=== PATIENT | female | born 1955 | race Caucasian/White ===

== ENCOUNTER 2016-05-30 15:26 | Inpatient (IN) | payer MEDICARE, MEDICAID ==
[2016-05-30] VITALS (19 sets, daily range): BP systolic 67–105; BP diastolic 32–59; PULSE 67–76; RESP 19–37; TEMP 98.5; O2SAT 89–100; Ht 137.2 cm; Wt 60.7 kg
[~2016-05-30] VITALS: Ht 137.2 cm; Wt 60.7 kg
[~2016-05-30 15:26] MED LIST: ACET-62 PO; ALBU18HF2 ORAL INH; BABY OIL TOP; CALC-1000 PO; CHOL100018 PO; CITA-50 PO; CLOT15CR8 TOP; DESENEX TP; DIVA250T27 PO; DOCU-175 PO; FLUO118.2 TOP; FLUT16SP12 EA NOSTRIL; FURO20TA6 PO; GLUC500C2 PO; GLUC500T PO; LEVO75TA10 PO; LORA-326 PO; MICO56OI2 TOP; MUPI22OI2 TOP; NYST15CR2 TOP; POLY15DR58 BOTH EYES; RISP0.2515 PO; SODI15DR7 BOTH EYES; TRAZ-173 PO; TRIA15CR2 TOP; VIT236LO TOP; ZINC57OI3 TOP; [UNRECOGNIZED DRUG - CODE] PO; [UNRECOGNIZED DRUG - CODE] PO; [UNRECOGNIZED DRUG - CODE] TOP
--- OUTSIDE RECORDS SUMMARY | 2016-05-30 15:31 | XMS REPORT | Continuity of Care Document ---
Author Author [facility] Organization [facility] Address Unknown Phone Unavailable Care Team Providers Care General Education Instructor Name Role Phone SKYLER MC DO Primary Care Physician [phone] Insurance Providers Payer Name Policy Number Subscriber Name Relationship Medicare [id number] Avis Adair Self [facility] [employer] Plan [id number] Avis Adair Self Advance Directives Directive Response Recorded Date/Time Ordered Resuscitation Status Full Code 04/29/14 12:52pm Resuscitation Documents on File No 04/29/14 1:24pm Chief Complaint and Reason for Visit Chief Complaint SEPSIS/PENUMONIA/HYPOXEMIA Reason for Visit Severe sepsis with acute organ dysfunction Left lower lobe pneumonia Severe sepsis with acute organ dysfunction Problems Medical Problems Problem Onset Date Status episode of choking Unknown Active Fall on same level from slipping, tripping or stumbling Unknown Active Knee contusions Unknown Active Minor head injury Unknown Active Nasal contusion Unknown Active Knee pain, bilateral Unknown Active Abrasion of knee Unknown Active Knee pain, bilateral Unknown Active Contusion of knee Unknown Active Abrasion of knee Unknown Active Contusion of knee Unknown Active Severe sepsis with acute organ dysfunction Unknown Active Left lower lobe pneumonia Unknown Active Severe sepsis with acute organ dysfunction Unknown Active Medications Medication Dose Route Sig Days/Qty Instructions Order Date Discontinued Date Status Loratadine 10 Mg PO DAILY 06/30/08 Active Furosemide 20 Mg PO DAILY 06/30/08 Active Levothyroxine Sodium 112 Mcg PO DAILY 06/30/08 10/31/11 Discontinued Multivitamins,Therapeutic 1 Tab PO DAILY 06/30/08 Active Miconazole Nitrate 141 Gm TP NEEDED 06/30/08 03/27/12 Discontinued Calcium Carbonate 1 Cap PO THREE TIMES A DAY 06/30/08 Active Ipratropium/Albuterol Sulfate 14.7 Gm IH NEEDED 06/30/08 Active Hydrocortisone 0.89 Gm TP TWICE A DAY 06/30/08 03/27/12 Discontinued Loperamide Hcl 2 Mg PO NEEDED 06/30/08 Active Citalopram Hydrobromide 20 Mg PO DAILY 10/31/11 Active Fluticasone Propionate 16 Gm NS DAILY 10/31/11 Active Glucosam Hcl/Chondro Dominguez A/C/Mn 1 Cap PO DAILY 10/31/11 Active Levothyroxine Sodium 75 Mcg PO DAILY 10/31/11 Active Acetaminophen THREE TIMES A DAY 01/25/14 Active Diphenhydramine HCl 1 Tab PO BEDTIME 01/25/14 Active Temazepam 15 Mg PO BEDTIME Take 1 capsule, by mouth, one time a day at BEDTIME. 01/25/14 Active Trazodone HCl 50 Mg PO BEDTIME 01/25/14 Active Glucosamine Sulfate 2Kcl 500 Mg 02/19/14 Active Dextran 70/Hypromellose 1-2 Drop BOTH EYES EVERY 4-6 HOURS PRN DRY EYES 04/29/14 Active Clobetasol Propionate/Emoll THREE TIMES A DAY PRN M 04/29/14 Active Sodium Chloride 1 Drop OP 04/29/14 Active Amox Tr/Potassium Clavulanate 875 Mg PO TWICE DAILY WITH MEALS 5 Days 05/12/14 Active Furosemide 20 Mg PO GIVE 0900 & 1700 5 Days 05/12/14 Active Social History Social History Problem Response Recorded Date/Time Hx Alcohol Use No 04/29/2014 10:08am Has the pt used tobacco in the last 12 months No 04/29/2014 1:25pm Tobacco Usage none 01/25/2014 3:55pm Query Response Start Date Stop Date Smoking Status Never smoker Hospital Discharge Instructions Instructions: Care Instructions: Reason for Hospitalization: pneumonia I was in the hospital because (patient own words): UNABLE TO ANSWER Follow Up Appointments: Follow up in office in 1 week. Condition at time of discharge: Good [address] 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 Pena or the covering surgeon. *In the event of an emergency, seek medical care at the nearest emergency room.* Condition at time of discharge: Good Plan of Care Discharge Date 05/12/14 8:05pm Disposition 06 HOME HEALTH SERVICE Instructions/Education Provided [facility] Congestive Heart Failure DI for Pneumonia -- Adult Prescriptions See Medications Section Functional Status Query Response Date Recorded Physical Hygiene Total Care May 12, 2014 4:17pm Disabilities None May 12, 2014 4:17pm Devices Used None May 12, 2014 4:17pm Dressing Total Care May 12, 2014 4:17pm Ambulation Assist May 12, 2014 4:17pm Diet Assist May 12, 2014 4:17pm Cognitive/Functional Comments downs syndrome and mental retardation May 12, 2014 4:17pm Mental Status Confused May 12, 2014 4:17pm Disabilities None May 12, 2014 4:17pm Devices Used None May 12, 2014 4:17pm Physical Hygiene Total Care May 12, 2014 4:17pm Dressing Total Care May 12, 2014 4:17pm Ambulation Assist May 12, 2014 4:17pm Diet Assist May 12, 2014 4:17pm Allergies, Adverse Reactions, Alerts Allergen Type Severity Reaction Status Last Updated No Known Allergies Active 02/19/14 Immunizations Name Given Type Hx Influenza Vaccination Y NOV 2013 Historical Hx Pneumococcal Vaccination Y JAN 2014 Historical Hx Influenza Vaccination Y NOV 2013 Historical Hx Tetanus Diptheria 12/28/03 Historical Vital Signs Acute Vital Signs Vital Response Date/Time Temperature (Fahrenheit) 96.9 deg F (96.8 - 99.1) Temperature (Calculated Celsius) 36.64264 degrees C (36.0 - 37.3) Pulse Rate (adult) 69 bpm (60 - 100) Respiratory Rate 20 breaths/min (10 - 20) O2 Sat by Pulse Oximetry 92 % (90 - 100) Oxygen Delivery Method Nasal Cannula Oxygen Flow Rate 3.00 L/min Height 4 ft 7 in Weight 141 lb Body Mass Index 32.0 kg/m^2 Results Test Source Date Result Interp. Ref. Range Comments Alanine Aminotransferase (ALT/SGPT) May 10, 2014 6:18am 45 U/L N 9-52 Albumin May 10, 2014 6:18am 2.4 G/DL L 3.5-5.0 Albumin/Globulin Ratio May 10, 2014 6:18am 0.8 RATIO L 1.1-2.2 Alkaline Phosphatase May 10, 2014 6:18am 55 U/L N 38-126 Anion Gap May 12, 2014 8:00am 8 MEQ/L N 5-15 Aspartate Amino Transf (AST/SGOT) May 10, 2014 6:18am 45 U/L H 14-36 BUN/Creatinine Ratio May 12, 2014 8:00am 16 RATIO N 6-26 Band Neutrophils # May 03, 2014 11:12am 0.4 T/MM3 - Band Neutrophils % May 03, 2014 11:12am 5.0 % N 0-6 Basophils # (Auto) May 12, 2014 8:00am 0.1 T/MM3 N 0-0.2 Basophils (%) (Auto) May 12, 2014 8:00am 1.8 % N 0-2 Blood Urea Nitrogen May 12, 2014 8:00am 22.0 MG/DL H 7-17 Calcium Level May 12, 2014 8:00am 8.3 MG/DL L 8.4-10.2 Calculated Osmolality May 12, 2014 8:00am 279 MOSM/KG N 261-280 Carbon Dioxide Level May 12, 2014 8:00am 35 MEQ/L H 22-30 Chemistry Specimen Hemolysis May 12, 2014 8:00am < 15 0-25 0-25: No Hemolysis.26-70: Slight Hemolysis - can falsely elevate K and Urine Protein. 71-285: Moderate Hemolysis - can falsely elevate K, Troponin I, CA 19-9, PTH, CSF GLucose, and Urine Protein, and can falsely decrease Phenytoin. 286-999: Gross Hemolysis - can falsely elevate K, Troponin I, CA 19-9, PTH, CSF Glucose, and Urine Protine, and can falsely decrease Phenytoin. Recommend specimen recollection. Chloride Level May 12, 2014 8:00am 101 MEQ/L N 98-107 Creatinine May 12, 2014 8:00am 1.4 MG/DL H 0.7-1.2 Eosinophils # (Auto) May 12, 2014 8:00am 0.3 T/MM3 N 0-0.5 Eosinophils # (Manual) May 04, 2014 6:06am 0.2 T/MM3 N 0-0.5 Eosinophils % (Manual) May 04, 2014 6:06am 4.0 % N 0-4 Eosinophils (%) (Auto) May 12, 2014 8:00am 4.6 % H 0-4 Globulin May 10, 2014 6:18am 3.0 G/DL N 2.4-3.6 Glomerular Filtration Rate Calc May 12, 2014 8:00am 38 - Glucose Level May 12, 2014 8:00am 80 MG/DL N 65-110 Hematocrit May 12, 2014 8:00am 33.5 % L 36-46 Hemoglobin May 12, 2014 8:00am 10.9 GM/DL L 12-16 Icterus Index May 12, 2014 8:00am < 2 0-7 Immature Granulocyte # (Auto) May 12, 2014 8:00am 0.02 T/MM3 N 0.00- 0.03 Immature Granulocyte % (Auto) May 12, 2014 8:00am 0.3 % N 0.0-0.5 Influenza Type A Antigen April 29, 2014 3:35pm Negative - Negative for Flu A protein antigen. Assay sensitivity is90%. Influenza Type B Antigen April 29, 2014 3:35pm Negative - Negative for Flu B protein antigen. Assay sensitivity is90%. Lymphocytes # (Auto) May 12, 2014 8:00am 0.9 T/MM3 L 1-4.8 Lymphocytes # (Manual) May 04, 2014 6:06am 0.6 T/MM3 L 1-4.8 Lymphocytes % (Manual) May 04, 2014 6:06am 11.0 % L 23-45 Lymphocytes (%) (Auto) May 12, 2014 8:00am 14.0 % L 23-45 Mean Corpuscular Hemoglobin May 12, 2014 8:00am 32.3 UUG N 26-34 Mean Corpuscular Hemoglobin Concent May 12, 2014 8:00am 32.5 GM/DL N 31-37 Mean Corpuscular Volume May 12, 2014 8:00am 99.4 UM3 N 80-100 Mean Platelet Volume May 12, 2014 8:00am 11.4 UM3 N 9.4-12.4 Monocytes # (Auto) May 12, 2014 8:00am 0.6 T/MM3 N 0-0.8 Monocytes # (Manual) May 04, 2014 6:06am 0.6 T/MM3 N 0-0.8 Monocytes % (Manual) May 04, 2014 6:06am 11.0 % H 0-9.0 Monocytes (%) (Auto) May 12, 2014 8:00am 9.7 % H 0-9.0 CE-Uir-E-Type Natriuretic Peptide May 07, 2014 4:50am 1650 PG/ML H 0- 175 Rule in cut points: <50 years old=450; 50-75 years old=900; >75 years old=1800; When utilizing ProBNP rule-in cut points, adjustment for impaired renal function is typically not required. Neutrophils # (Auto) May 12, 2014 8:00am 4.5 T/MM3 N 1.8-7.7 Neutrophils # (Manual) May 04, 2014 6:06am 3.8 T/MM3 N 1.8-7.7 Neutrophils % (Manual) May 04, 2014 6:06am 74.0 % H 33-66 Neutrophils (%) (Auto) May 12, 2014 8:00am 69.6 % H 33-66 Platelet Count May 12, 2014 8:00am 360 T/MM3 N 130-400 Potassium Level May 12, 2014 8:00am 4.3 MEQ/L N 3.6-5 Procalcitonin April 29, 2014 10:43am 17.08 NG/ML PH - PCT </=0.5 ng/mL - sepsis not likely;PCT >0.5 and </=2 ng/mL - sepsis possible; PCT >2 ng/mL - sepsis likely; PCT >/=10 ng/mL - systemic inflammatory response - sepsis or septic shock highly indicated. RDW Standard Deviation May 12, 2014 8:00am 53.5 FL H 36.9-50.2 Red Blood Count May 12, 2014 8:00am 3.37 M/MM3 L 4.00-5.20 Red Cell Morphology Comment May 04, 2014 6:06am Normal - Sodium Level May 12, 2014 8:00am 144 MEQ/L N 134-144 Total Bilirubin May 10, 2014 6:18am 0.40 MG/DL N 0.20-1.30 Total Protein May 10, 2014 6:18am 5.4 G/DL L 6.3-8.2 Troponin I April 29, 2014 10:17pm 0.039 ng/ml DN 0-0.12 Turbidity May 12, 2014 8:00am < 20 0-20 Urinalysis Comment April 30, 2014 7:00pm Microscopic not ind. - Has specimen been collected/obtained? Y Urine Bilirubin April 30, 2014 7:00pm Negative - Has specimen been collected/obtained? Y Urine Blood April 30, 2014 7:00pm Negative - Has specimen been collected/obtained? Y Urine Collection Type April 30, 2014 7:00pm Straight cath - Has specimen been collected/obtained? Y Urine Color April 30, 2014 7:00pm Yellow - Has specimen been collected/obtained? Y Urine Glucose (UA) April 30, 2014 7:00pm Negative - Has specimen been collected/obtained? Y Urine Ketones April 30, 2014 7:00pm Negative - Has specimen been collected/obtained? Y Urine Leukocyte Esterase April 30, 2014 7:00pm Negative - Has specimen been collected/obtained? Y Urine Nitrite April 30, 2014 7:00pm Negative - Has specimen been collected/obtained? Y Urine Protein April 30, 2014 7:00pm Negative - Has specimen been collected/obtained? Y Urine Specific Bastian April 30, 2014 7:00pm <=1.005 L - Has specimen been collected/obtained? Y Urine Turbidity April 30, 2014 7:00pm Clear - Has specimen been collected/obtained? Y Urine Urobilinogen April 30, 2014 7:00pm 0.2 EU/DL - Has specimen been collected/obtained? Y Urine pH April 30, 2014 7:00pm 6.0 - Has specimen been collected/ obtained? Y Venous Blood Lactate April 29, 2014 10:43am 2.0 MMOL/L N 0.6-2.2 White Blood Count May 12, 2014 8:00am 6.5 T/MM3 N 4.5-11.0 Blood Culture Peripheral Blood April 29, 2014 10:43am NO GROWTH AFTER 5 DAYS Gram Stain Sputum-Expectorated Sputum April 30, 2014 7:00pm Name: AVIS ADAIR Unit #: [id number] : 1955 Sex: F Loc / Sv: MED DOS: 04/29/14 Signed Report #: [id number] DIAGNOSTIC IMAGING REPORT TYPE OF EXAM: CHEST, PA & LATERAL Dictated By: FAUSTINO MEREDITH MD INDICATION: ITS.REASON: COUGH CHEST 2-VIEWS UPRIGHT (PA & LAT) COMPARISON: May 06, 2014 and May 03, 2014 FINDINGS: Slightly improved aeration of the upper lobes. Continued patchy interstitial and airspace consolidation in both mid to lower lung olivares. Lungs are hypoinflated. No pneumothorax. Small effusions. Heart size and mediastinal contours are stable. Pulmonary vascularity remains prominent. Post sternotomy changes. Impression: Slightly improved pulmonary edema with residual bilateral airspace disease could represent residual edema or atypical pneumonia. . Procedures Procedure Status Date Provider(s) X-RAY EXAM OF LOWER LEG completed 02/19/14 EMERGENCY DEPT VISIT completed 02/19/14 [id number] ITEM OR SERVICE completed 02/19/14 Encounters Encounter Location Date/Time Discharged Inpatient [facility] 04/29/14 12:18pm Departed Emergency Room [facility] 02/19/14 8:26am Recent Diagnosis Severe sepsis with acute organ dysfunction Left lower lobe pneumonia Severe sepsis with acute organ dysfunction
--- OUTSIDE RECORDS SUMMARY | 2016-05-30 15:31 | XMS REPORT | Continuity of Care Document ---
Author Author [facility] Organization [facility] Address Unknown Phone Unavailable Allergies Medications Problems Procedures Results Encounters ACCT No. Visit Date/Time Discharge Status Pt. Type Provider Facility Loc./Unit Complaint [id number] 01/21/2013 14:55:00 01/21/2013 23 :59:59 CLS Outpatient
--- OUTSIDE RECORDS SUMMARY | 2016-05-30 15:32 | XMS REPORT | Continuity of Care Document ---
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 Role Phone SKYLER MC DO Primary Care Physician [phone] Insurance Providers Payer Name Policy Number Subscriber Name Relationship Medicare [id number] Avis Adair 18 Self [facility] Plan [id number] Avis Adair 18 Self Advance Directives Directive Response Recorded Date/Time Advanced Directives Type None 01/25/14 3:32pm Problems Medical Problems Problem Onset Date Status episode of choking Unknown Active Fall on same level from slipping, tripping or stumbling Unknown Active Knee contusions Unknown Active Minor head injury Unknown Active Nasal contusion Unknown Active Knee pain, bilateral Unknown Active Abrasion of knee Unknown Active Knee pain, bilateral Unknown Active Medications Medication Dose Route Sig Days/Qty Instructions Order Date Discontinued Date Status Loratadine 10 Mg PO DAILY 06/30/08 Active Furosemide 20 Mg PO DAILY 06/30/08 Active Clotrimazole 24 Gm TP TWICE A DAY 06/30/08 Active Levothyroxine Sodium 112 Mcg PO DAILY 06/30/08 10/31/11 Discontinued Multivitamins,Therapeutic 1 Tab PO DAILY 06/30/08 Active Miconazole Nitrate 141 Gm TP NEEDED 06/30/08 03/27/12 Discontinued Calcium Carbonate 1 Cap PO THREE TIMES A DAY 06/30/08 Active Avobenzone/Octocrylene 120 Ml TP THREE TIMES A DAY 06/30/08 Active Ipratropium/Albuterol Sulfate 14.7 Gm IH NEEDED 06/30/08 Active Hydrocortisone 0.89 Gm TP TWICE A DAY 06/30/08 03/27/12 Discontinued Fluocinolone Acetonide 118.28 Ml TP NEEDED 06/30/08 Active Cod Liver Oil/Zinc Oxide 113 Gm TP NEEDED 06/30/08 Active [Eucerin Cream] TWICE A DAY 06/30/08 Active Loperamide Hcl 2 Mg PO NEEDED 06/30/08 Active Triamcinolone Acetonide 15 Gm TP NEEDED 06/30/08 Active Dextran 70/Hypromellose 15 Ml OP FOUR TIMES DAILY 06/30/08 Active Tolnaftate 133 Gm TP NEEDED 06/30/08 Active Citalopram Hydrobromide 20 Mg PO DAILY 10/31/11 Active Fluticasone Propionate 16 Gm NS DAILY 10/31/11 Active Glucosam Hcl/Chondro Dominguez A/C/Mn 1 Cap PO DAILY 10/31/11 Active Levothyroxine Sodium 75 Mcg PO DAILY 10/31/11 Active Quetiapine Fumarate 25 Mg PO DAILY 10/31/11 Active Miconazole Nitrate 141 Gm TP NEEDED 10/31/11 Active Acetaminophen THREE TIMES A DAY 01/25/14 Active Diphenhydramine HCl 1 Tab PO BEDTIME 01/25/14 Active Temazepam 15 Mg PO BEDTIME Take 1 capsule, by mouth, one time a day at BEDTIME. 01/25/14 Active Trazodone HCl 50 Mg PO BEDTIME 01/25/14 Active Social History Social History Problem Response Recorded Date/Time Hx Alcohol Use No 01/25/2014 3:45pm Tobacco Usage none 01/25/2014 3:55pm Query Response Start Date Stop Date Smoking Status Never smoker Hospital Discharge Instructions No hospital discharge instructions. Plan of Care No plan of care. Functional Status Query Response Date Recorded Physical Hygiene Assist January 25, 2014 3:45pm Disabilities Visual January 25, 2014 3:45pm Devices Used Wheelchair January 25, 2014 3:45pm Dressing Assist January 25, 2014 3:45pm Ambulation Assist January 25, 2014 3:45pm Diet Self January 25, 2014 3:45pm Mental Status Alert Oriented January 25, 2014 4:38pm Disabilities Visual January 25, 2014 3:45pm Devices Used Wheelchair January 25, 2014 3:45pm Physical Hygiene Assist January 25, 2014 3:45pm Dressing Assist January 25, 2014 3:45pm Ambulation Assist January 25, 2014 3:45pm Diet Self January 25, 2014 3:45pm Allergies, Adverse Reactions, Alerts Allergen Type Severity Reaction Status Last Updated No Known Allergies Active 01/25/14 Immunizations Name Given Type Hx Influenza Vaccination UNKNOWN Historical Hx Influenza Vaccination UNKNOWN Historical Hx Tetanus Diptheria 12/28/03 Historical Vital Signs Acute Vital Signs Vital Response Date/Time Temperature (Fahrenheit) 97.4 deg F (96.8 - 99.1) Temperature (Calculated Celsius) 36.19132 degrees C (36.0 - 37.3) Pulse Rate (adult) 53 bpm (60 - 100) Respiratory Rate 16 breaths/min (10 - 20) O2 Sat by Pulse Oximetry 97 % (90 - 100) Blood Pressure 106/52 mm Hg Height 4 ft 7 in Weight 114 lb Body Mass Index 26.0 kg/m^2 Results Name: AVIS ADAIR Unit #: [id number] : 1955 Sex: F Loc / Svc: ED DOS: 01/25/14 Signed Report #: [id number] DIAGNOSTIC IMAGING REPORT TYPE OF EXAM: KNEE BILAT 3 VIEWS Dictated By: FAUSTINO MEREDITH MD Indication: ITS.REASON: pain / fell Comparison: Left knee radiographs dated September 07, 2013 Findings: There is no acute fracture, dislocation or malalignment identified. Mild medial compartment joint space loss bilaterally. Impression: No acute osseous abnormality. . Procedures No known history of procedures. Encounters Encounter Location Date/Time Registered Emergency Room [facility] 01/25/14 3:24pm Recent Diagnosis
--- OUTSIDE RECORDS SUMMARY | 2016-05-30 15:32 | XMS REPORT | Continuity of Care Document ---
Author Author [facility] Organization [facility] Address Unknown Phone Unavailable Support Name Relationship Address Phone DARION HOLLOWAY MD Caregiver [address] [place] [address] Unavailable JENN TRIPP MD Caregiver [address] [place] [address] Unavailable GUILLE ADAIR GUARDIAN/CONSERV Next Of Kin [address] [place], [place] [address] Insurance Providers Guarantor Rosana Adair Address [address] [place] [address] Email DENIED 04-27-16 Payer [facility] Colizer Plan Policy Number [id number] Subscriber's Name ManaFreyagunjan Craig Relationship 18 Self Effective Date 16 Expiration Date 16 Payer Medicare Policy Number [id number] Subscriber's Name ManaFreyagunjan Craig Relationship 18 Self Effective Date 73 Advance Directives Directive Response Recorded Date/Time Advanced Directives Type None 04/27/16 1:05pm Chief Complaint and Reason for Visit Chief Complaint Throat Pain/Injury Reason for Visit Esophagitis Problems Active Problems Medical Problem Onset Date Status Abrasion of knee Unknown Acute Abrasion of knee Unknown Acute Abrasion, right lower leg, initial encounter Unknown Acute Acute respiratory insufficiency Unknown Acute Bacteremia Unknown Acute CHF due to valvular disease Unknown Chronic CHF exacerbation Unknown Acute Contusion of knee Unknown Acute Contusion of knee Unknown Acute Down's syndrome Unknown Chronic Fall on same level from slipping, tripping or stumbling Unknown Acute Fall on same level from slipping, tripping or stumbling Unknown Acute HTN (hypertension) Unknown Chronic Hypothyroidism Unknown Chronic Knee contusions Unknown Acute Knee pain, bilateral Unknown Acute Knee pain, bilateral Unknown Acute Left lower lobe pneumonia Unknown Acute Left lower lobe pneumonia Unknown Acute Left lower lobe pneumonia Unknown Acute Medical non-compliance Unknown Acute Minor head injury Unknown Acute Nasal contusion Unknown Acute Sepsis Unknown Acute Severe sepsis with acute organ dysfunction Unknown Acute Severe sepsis with acute organ dysfunction Unknown Acute Transient hypotension Unknown Acute UTI (lower urinary tract infection) Unknown Acute episode of choking Unknown Acute Past Problems Medical Problem Onset Date Esophagitis Unknown Scalp laceration Unknown Medications Current Home Medications Medication Dose Units Route Directions Days Qty Instructions Start Date Acetaminophen 500 Mg Tablet 1,000 Mg Oral Three Times A Day 04/10 Albuterol Sulfate (Ventolin Hfa 90 Mcg/Actuation) 18 Gm Hfa.aer.ad 1 Puff Oral Inhalation Every 4 Hours as needed for Shortness Of Air/Wheezing 04/10/16 Baby Oil 1 Applic Topically As Needed as needed for Flaky Scalp 04/27/16 Calcium Carbonate/Mag Hydrox (Antacid Chewable Tablet) 1 Each Tab.chew 500 Mg Oral Three Times A Day as needed for Indigestion 04/10/16 Cholecalciferol (Vitamin D3) 1,000 Unit Tablet 1,500 Unit Oral Daily 06/22/15 Citalopram Hydrobromide (Celexa) 20 Mg Tablet 20 Mg Oral Daily Clotrimazole (Clotrim Antifungal) 15 Gm Cream..g. 1 Applic Topically Twice A Day 03/09/15 Atlantic Tar (T-Gel) 130 Ml Shampoo 1 Applic Topically Twice A Week 04/27/16 Desenex Ointment 1 Applic Topical As Needed 04/10/16 Divalproex Sodium 250 Mg Tablet.dr 250 Mg Oral Twice A Day Docusate Sodium 100 Mg Capsule 100 Mg Oral Twice A Day as needed for Constipation 04/10/16 Fluocinolone Acetonide (Kukzd-Jipjucz-Tn) 118.28 Ml Oil 1 Applic Topically Twice A Day as needed for Prn Orders 04/27/16 Fluticasone Propionate (Flonase) 16 Gm [place].susp 2 [place] Each Nostril Daily 10/31/11 Furosemide (Lasix) 20 Mg Tablet 20 Mg Oral Daily 06/30/08 Glucosamine Sulfate 500 Mg Capsule 1,500 Mg Oral Twice A Day 06/03 Glucosamine Sulfate 500 Mg Tablet 500 Mg Oral Give With Supper Guaifenesin/Dextromethorphan (Siltussin Dm Cough Syrup) 118 Ml Syrup 5 Ml Oral Every 6 Hours as needed for Cough 04/10/16 Levothyroxine Sodium 75 Mcg Tablet 75 Mcg Oral Daily 06/22/15 Loratadine (Claritin) 10 Mg Tablet 10 Mg Oral Daily 06/30/08 Miconazole Nitrate (Aloe [place]) 56 Gm Oint...g. 1 Applic Topically Twice A Day 04/27/16 Multivitamins,Therapeutic (Theragran) 1 Tab Tablet 1 Tab Oral Daily 06/30/08 Mupirocin 22 Gm Oint...g. 1 Applic Topically Three Times A Day as needed for Prn Orders 06/22/15 Nystatin/Triamcin (Nystatin-Triamcinolone Cream) 15 Gm Cream..g. 1 Dose Topically Twice A Day 04/10/16 Polyvinyl Alcohol (Liquitears) 15 Ml Drops 1-2 Drop Both Eyes Four Times Daily 06/22/15 Risperidone 0.25 Mg Tablet 0.25 Mg Oral Twice A Day 07/10/14 Sodium Chloride (Natty-128) 15 Ml Drops 1 Drop Both Eyes Daily 06/03 Trazodone Hcl 100 Mg Tablet 100 Mg Oral Bedtime 04/27/16 Triamcinolone (Triamcinolone Acetonide) 15 Applic/15 G Cr 1 Applic Topically Twice A Day 03/09/15 Vit E Acetate/Gly/Dimeth/Water (Cetaphil Moisturizing Lot) 50 Applic/236 Ml Lotion 1 Applic Topically Three Times A Day 04/27/16 Zinc Oxide (Desitin) 57 Gm Cream..g. 1 Applic Topically Three Times A Day as needed for Skin Irritation 04/10/16 Past Home Medications Medication Directions Ordered Status Amox Tr/Potassium Clavulanate (Amox Tr-K Clv 875-125 Mg Tab) 875 Mg Tablet, 875 Mg Oral Twice Daily With Meals 05/12/14 Discontinued Calcium Carbonate (Calci-Mix) 1 Cap Capsule, 1 Cap Oral Three Times A Day 31/10 Discontinued Cephalexin (Keflex) 500 Mg Capsule, 1 Cap Oral Four Times Daily 06/09/14 Discontinued Furosemide (Lasix) 20 Mg Tablet, 20 Mg Oral Give 0900 & 1700 05/12/14 Discontinued Hydrocortisone (Cortaid) 0.89 Gm Cream.gm., 0.89 Gm Topical Twice A Day 06/30 Discontinued Levothyroxine Sodium (Synthroid) 112 Mcg Tablet, 112 Mcg Oral Daily 06/30/08 Discontinued Miconazole Nitrate (Aloe [place]) 141 Gm Oint..gm., 141 Gm Topical As Needed Discontinued Social History Social History Problem Response Recorded Date/Time Onset Date Status Hx Substance Use No 04/27/2016 1:21pm Not Applicable Not Applicable Hx Alcohol Use No 04/27/2016 1:21pm Not Applicable Not Applicable Has the pt used tobacco in the last 12 months No 06/04/2014 10:41am Not Applicable Not Applicable Tobacco Usage none 01/25/2014 3:55pm Not Applicable Not Applicable Query Response Start Date Stop Date Smoking Status Never smoker Hospital Discharge Instructions No hospital discharge instructions. Plan of Care Discharge Date 04/27/16 4:28pm Disposition 01 DISCHARGED HOME, SELF-CARE Condition at Discharge Stable Instructions/Education Provided Pharyngitis (ED) Prescriptions See Medication Section Referrals DARION HOLLOWAY MD Address: [address] [address] KAYE SCOTT DO Address: [address] [place] [phone] Functional Status No functional status results. Allergies, Adverse Reactions, Alerts No known allergies. Immunizations Immunization Event Date Type Not Given Reason Dose Number Lot Number Licensing Engineer VIS Given Tdap 04/10/16 Administered 1 [id number] Appoliciousine 04/13/14 Query Response on File Recorded Date/Time Hx Influenza Vaccination Y NOV 2013 07/10/14 7:48pm Hx Pneumococcal Vaccination Y JAN 2014 07/10/14 7:48pm Hx Influenza Vaccination Y NOV 2013 07/10/14 7:48pm Hx Tetanus Diptheria 12/28/03 04/10/16 9:35am DTaP Vaccine History 200304/27/16 1:21pm Influenza Vaccine Hx 12/201504/27/16 1:21pm Pneumococcal PCV13 Vaccine Hx 12/201504/10/16 9:35am Tdap Vaccine Hx 04/10/16 04/10/16 10:51am Vital Signs Acute Vital Signs Vital Response Date/Time Temperature (Fahrenheit) 97.6 deg F (96.8 - 99.1) 04/27/2016 4:28pm Temperature (Calculated Celsius) 36.30975 degrees C (36.0 - 37.3) 04/27/2016 4:28pm Pulse Rate (adult) 68 bpm (60 - 100) 04/27/2016 4:28pm Respiratory Rate 18 breaths/min (10 - 20) 04/27/2016 4:28pm O2 Sat by Pulse Oximetry 97 % (90 - 100) 04/27/2016 4:28pm Blood Pressure 118/68 mm Hg 04/27/2016 4:28pm Height (Feet) 4 feet 04/10/2016 9:17am Height (Inches) 54.00 inches 04/27/2016 1:05pm Weight (Kilograms) 60.300 kg 04/27/2016 1:05pm Body Mass Index (BMI) 32.0 04/27/2016 1:05pm Results Name: ROSANA ADAIR Unit #: [id number] : 1955 Sex: F Admit Date: Loc / Svc: ED Discharge Date: DIAGNOSTIC IMAGING REPORT Report #: [id number] [facility] [place] Indication: ITS.REASON: possible fob swallowed PROCEDURE: KUB: Encounter: Initial Comparison: None Findings: No gross free air on these supine views. The bowel gas pattern is nonobstructive and nonspecific. No radiopaque foreign body identified projecting over the abdomen. Degenerative change and scoliosis in the spine. Moderate stool in the colon. Impression: No radiopaque foreign body identified. . Procedures Procedure Status Date Provider(s) Rpr s/n/ax/gen/trnk 2.5cm/< Completed 04/10/[address] head/brain w/o dye Completed 04/10/16 Immunization admin Completed 04/10/16 Tdap vaccine 7 yrs/> im Completed 04/10/16 Emergency dept visit Completed 04/10/16 Encounters Encounter Location Arrival/Admit Date Discharge/Depart Date Attending Provider Departed Emergency Room [facility] 04/27/16 12:58pm 04/27/16 4: 28pm JENN TRIPP MD Departed Emergency Room [facility] 04/10/16 9:07am 04/10/16 12: 17pm ALONDRA SHOEMAKER DO Recent Diagnosis
--- OUTSIDE RECORDS SUMMARY | 2016-05-30 15:32 | XMS REPORT | Continuity of Care Document ---
Author Author [facility] Organization [facility] Address Unknown Phone Unavailable Care Team Providers Care Bologna Maker Name Role Phone SKYLER MC DO Primary Care Physician [phone] Insurance Providers Payer Name Policy Number Subscriber Name Relationship Medicare [id number] Avis Adair 18 Self [facility] Plan [id number] Avis Adair 18 Self Advance Directives Directive Response Recorded Date/Time Advanced Directives Type Unable to Obtain 02/19/14 8:42am Problems Medical Problems Problem Onset Date Status episode of choking Unknown Active Fall on same level from slipping, tripping or stumbling Unknown Active Knee contusions Unknown Active Minor head injury Unknown Active Nasal contusion Unknown Active Knee pain, bilateral Unknown Active Abrasion of knee Unknown Active Knee pain, bilateral Unknown Active Contusion of knee Unknown Active Abrasion of knee Unknown Active Medications Medication Dose Route Sig [...] Ml OP FOUR TIMES DAILY 06/30/08 Active Citalopram Hydrobromide 20 Mg PO [...] Glucosamine Sulfate 2Kcl 500 Mg 02/19/14 Active Social History Social History Problem Response Recorded Date/Time Hx Alcohol Use No 02/19/2014 9:30am Tobacco Usage none 01/25/2014 3:55pm Query Response Start Date Stop Date Smoking Status Never smoker Hospital Discharge Instructions No hospital discharge instructions. Plan of Care No plan of care. Functional Status Query Response Date Recorded Physical Hygiene Assist February 19, 2014 9:30am Disabilities None February 19, 2014 9:30am Devices Used None February 19, 2014 9:30am Dressing Assist February 19, 2014 9:30am Ambulation Self February 19, 2014 9:30am Diet Assist February 19, 2014 9:30am Cognitive/Functional Comments IS A DOWN'S PT. February 19, 2014 9:30am Mental Status Alert February 19, 2014 9:45am Disabilities None February 19, 2014 9:30am Devices Used None February 19, 2014 9:30am Physical Hygiene Assist February 19, 2014 9:30am Dressing Assist February 19, 2014 9:30am Ambulation Self February 19, 2014 9:30am Diet Assist February 19, 2014 9:30am Allergies, Adverse Reactions, Alerts Allergen Type Severity Reaction Status Last Updated No Known Allergies Active 02/19/14 Immunizations Name Given Type Hx Influenza Vaccination UNKNOWN Historical Hx Influenza Vaccination UNKNOWN Historical Hx Tetanus Diptheria 12/28/03 Historical Vital Signs Acute Vital Signs Vital Response Date/Time Temperature (Fahrenheit) 96.2 deg F (96.8 - 99.1) Temperature (Calculated Celsius) 35.36975 degrees C (36.0 - 37.3) Pulse Rate (adult) 60 bpm (60 - 100) Respiratory Rate 18 breaths/min (10 - 20) O2 Sat by Pulse Oximetry 97 % (90 - 100) Blood Pressure 107/52 mm Hg Height (Feet) 4 feet Height (Inches) 7.00 inches Weight (Kilograms) 63.200 kg Body Mass Index (BMI) 32.0 Results Name: AVIS ADAIR Unit #: [id number] : 1955 Sex: F Loc / Svc: ED DOS: Signed Report #: [id number] DIAGNOSTIC IMAGING REPORT TYPE OF EXAM: TIB-FIB RIGHT 2 VIEW Dictated By: FAUSTINO MEREDITH MD Indication: ITS.REASON: FALL, LEG PAIN Comparison: April 08, 2013 Findings: There is no acute fracture, dislocation or malalignment identified. Tiny osseous fragment adjacent to the lateral tibial plateau appears to be present on the comparison. Impression: No acute osseous abnormality. . Procedures Procedure Status Date Provider(s) X-RAY EXAM OF KNEE 3 completed 01/25/14 EMERGENCY DEPT VISIT completed 01/25/14 Encounters Encounter Location Date/Time Departed Emergency Room [facility] 02/19/14 8:26am Departed Emergency Room [facility] 01/25/14 3:24pm Recent Diagnosis
--- OUTSIDE RECORDS SUMMARY | 2016-05-30 15:32 | XMS REPORT | Continuity of Care Document ---
Author Author [facility] Organization [facility] Address Unknown Phone Unavailable Care Team Providers Care Spinning Operator Name Role Phone SKYLER MC DO Primary Care Physician [phone] Insurance Providers Payer Name Policy Number Subscriber Name Relationship Medicare [id number] Avis Adair Self [facility] [id number] Avis Adair 18 Self Chief Complaint and Reason for Visit Chief Complaint Fever Reason for Visit [id number] Left lower lobe pneumonia Problems Medical Problems Problem Onset Date Status [...] Active Left lower lobe pneumonia Unknown Active Medical non-compliance Unknown Active Left lower lobe pneumonia Unknown Active Medications Medication Dose Route Sig [...] PO THREE TIMES A DAY 06/30/08 Active Hydrocortisone 0.89 Gm TP TWICE A DAY 06/30/08 03/27/12 Discontinued Citalopram Hydrobromide 20 Mg PO DAILY 10/31/11 Active Fluticasone Propionate 2 [place] EA NOSTRIL DAILY 10/31/11 Active Levothyroxine Sodium 75 Mcg PO BEFORE BREAKFAST 10/31/11 Active Acetaminophen 325 Mg PO THREE TIMES A DAY 01/25/14 Active Diphenhydramine HCl 1 Tab PO BEDTIME 01/25/14 Active Temazepam 15 Mg PO BEDTIME Take 1 capsule, by mouth, one time a day at BEDTIME. 01/25/14 Active Trazodone HCl 50 Mg PO BEDTIME 01/25/14 Active Dextran 70/Hypromellose 1-2 Drop BOTH EYES FOUR TIMES DAILY 04/29/14 Active Amox Tr/Potassium Clavulanate 875 Mg PO TWICE DAILY WITH MEALS 5 Days 05/12/14 Active Furosemide 20 Mg PO GIVE 0900 & 1700 5 Days 05/12/14 Active Clobetasol Propionate 1 Applic TOP THREE TIMES A DAY apply to affected area on left knee 05/13/14 Active Glucosamine Sulfate 1 Cap PO GIVE WITH SUPPER 05/13/14 Active Sodium Chloride 1 Drop BOTH EYES DAILY 05/13/14 Active Ipratropium/Albuterol Sulfate 1 Puff PO FOUR TIMES DAILY PRN SHORTNESS OF AIR 05/13/14 Active Social History Social History Problem Response Recorded Date/Time Hx Alcohol Use No 05/13/2014 9:06am Has the pt used tobacco in the [...] week. Condition at time of discharge: Good see Guzman at Dr Frias's office after discharge for wound dressing and packing change with instructions. Radiation is scheduled for tomorrow with Dr Moon. Follow up with Dr Betancur regarding chemo plans. Patient Instructions: shouls your symptoms return, or you develop recurrent fever/chills/redness and drainage at the wound site contact Dr Frias through the office for further instructions. If symptoms become dire return to the ED for emergent evaluation. Continue coumadin per Dr. Kyle Kunz. Have INR checked before tomorrow's dose. Condition at time of discharge: Good or excessive foul smelling drainage. 3. If the office is closed, call [facility] at [phone] and have your Surgeon paged. Condition at time of discharge: Good Good room.* Condition at time of discharge: Good Plan of Care Discharge Date 05/12/14 8:05pm Disposition 02 TO [facility] Condition at Discharge Improved Instructions/Education Provided [facility] Congestive Heart Failure DI for Pneumonia -- Adult Prescriptions See Medications Section Referrals SKYLER MC DO Functional Status Query Response Date Recorded Physical Hygiene Total Care May 13, 2014 9:06am Disabilities None May 13, 2014 9:06am Devices Used None May 13, 2014 9:06am Dressing Total Care May 13, 2014 9:06am Ambulation Total Care May 13, 2014 9:06am Diet Total Care May 13, 2014 9:06am Mental Status Alert May 13, 2014 1:05pm Disabilities None May 13, 2014 9:06am Devices Used None May 13, 2014 9:06am Physical Hygiene Total Care May 13, 2014 9:06am Dressing Total Care May 13, 2014 9:06am Ambulation Total Care May 13, 2014 9:06am Diet Total Care May 13, 2014 9:06am Allergies, Adverse Reactions, Alerts Allergen Type Severity Reaction Status Last Updated No Known Allergies Active 05/13/14 Immunizations Name Given Type Hx Influenza Vaccination Y NOV 2013 Historical Hx Pneumococcal Vaccination Y JAN 2014 Historical Hx Influenza Vaccination Y NOV 2013 Historical Hx Tetanus Diptheria 12/28/03 Historical Vital Signs Acute Vital Signs Vital Response Date/Time Temperature (Fahrenheit) 97.5 deg F (96.8 - 99.1) Temperature (Calculated Celsius) 36.51809 degrees C (36.0 - 37.3) Pulse Rate (adult) 69 bpm (60 - 100) Respiratory Rate 16 breaths/min (10 - 20) O2 Sat by Pulse Oximetry 89 % (90 - 100) Oxygen Flow Rate 2 L/min Blood Pressure 123/78 mm Hg Height 4 ft 11 in Weight 141 lb Body Mass Index 28.0 kg/m^2 Results Test Source Date Result Interp. Ref. Range Comments Alanine Aminotransferase (ALT/SGPT) May 13, 2014 9:31am 44 U/L N 9-52 Albumin May 13, 2014 9:31am 3.0 G/DL L 3.5-5.0 Albumin/Globulin Ratio May 13, 2014 9:31am 0.8 RATIO L 1.1-2.2 Alkaline Phosphatase May 13, 2014 9:31am 67 U/L N 38-126 Anion Gap May 13, 2014 9:31am 12 MEQ/L N 5-15 Aspartate Amino Transf (AST/SGOT) May 13, 2014 9:31am 42 U/L H 14-36 BUN/Creatinine Ratio May 13, 2014 9:31am 19 RATIO N 6-26 Band Neutrophils # May 03, 2014 11:12am 0.4 T/MM3 - Band Neutrophils % May 03, 2014 11:12am 5.0 % N 0-6 Basophils # (Auto) May 13, 2014 9:32am 0.1 T/MM3 N 0-0.2 Basophils (%) (Auto) May 13, 2014 9:32am 2.3 % H 0-2 Blood Urea Nitrogen May 13, 2014 9:31am 25.0 MG/DL H 7-17 Calcium Level May 13, 2014 9:31am 8.6 MG/DL N 8.4-10.2 Calculated Osmolality May 13, 2014 9:31am 284 MOSM/KG H 261-280 Carbon Dioxide Level May 13, 2014 9:31am 32 MEQ/L H 22-30 Chemistry Specimen Hemolysis May 13, 2014 9:31am 83 H 0-25 0-25: No Hemolysis.26-70: Slight Hemolysis - [...] Phenytoin. Recommend specimen recollection. Chloride Level May 13, 2014 9:31am 102 MEQ/L N 98-107 Creatinine May 13, 2014 9:31am 1.3 MG/DL DH 0.7-1.2 Eosinophils # (Auto) May 13, 2014 9:32am 0.2 T/MM3 N 0-0.5 Eosinophils # (Manual) May 04, 2014 6:06am 0.2 T/MM3 N 0-0.5 Eosinophils % (Manual) May 04, 2014 6:06am 4.0 % N 0-4 Eosinophils (%) (Auto) May 13, 2014 9:32am 4.0 % N 0-4 Globulin May 13, 2014 9:31am 3.9 G/DL H 2.4-3.6 Glomerular Filtration Rate Calc May 13, 2014 9:31am 42 - Glucose Level May 13, 2014 9:31am 81 MG/DL N 65-110 Hematocrit May 13, 2014 9:32am 35.1 % L 36-46 Hemoglobin May 13, 2014 9:32am 11.6 GM/DL L 12-16 Icterus Index May 13, 2014 9:31am < 2 0-7 Immature Granulocyte # (Auto) May 13, 2014 9:32am 0.03 T/MM3 N 0.00- 0.03 Immature Granulocyte % (Auto) May 13, 2014 9:32am 0.5 % N 0.0-0.5 Influenza Type A Antigen April 29, 2014 3:35pm Negative - Negative for Flu A protein antigen. Assay sensitivity is90%. Influenza Type B Antigen April 29, 2014 3:35pm Negative - Negative for Flu B protein antigen. Assay sensitivity is90%. Lymphocytes # (Auto) May 13, 2014 9:32am 0.8 T/MM3 L 1-4.8 Lymphocytes # (Manual) May 04, 2014 6:06am 0.6 T/MM3 L 1-4.8 Lymphocytes % (Manual) May 04, 2014 6:06am 11.0 % L 23-45 Lymphocytes (%) (Auto) May 13, 2014 9:32am 13.2 % L 23-45 Mean Corpuscular Hemoglobin May 13, 2014 9:32am 32.7 UUG N 26-34 Mean Corpuscular Hemoglobin Concent May 13, 2014 9:32am 33.0 GM/DL N 31-37 Mean Corpuscular Volume May 13, 2014 9:32am 98.9 UM3 N 80-100 Mean Platelet Volume May 13, 2014 9:32am 11.0 UM3 N 9.4-12.4 Monocytes # (Auto) May 13, 2014 9:32am 0.7 T/MM3 N 0-0.8 Monocytes # (Manual) May 04, 2014 6:06am 0.6 T/MM3 N 0-0.8 Monocytes % (Manual) May 04, 2014 6:06am 11.0 % H 0-9.0 Monocytes (%) (Auto) May 13, 2014 9:32am 12.4 % H 0-9.0 QB-Uru-L-Type Natriuretic Peptide May 07, 2014 4:50am 1650 PG/ML H 0- 175 Rule in cut points: <50 years old=450; 50-75 years old=900; >75 years old=1800; When utilizing ProBNP rule-in cut points, adjustment for impaired renal function is typically not required. Neutrophils # (Auto) May 13, 2014 9:32am 4.0 T/MM3 N 1.8-7.7 Neutrophils # (Manual) May 04, 2014 6:06am 3.8 T/MM3 N 1.8-7.7 Neutrophils % (Manual) May 04, 2014 6:06am 74.0 % H 33-66 Neutrophils (%) (Auto) May 13, 2014 9:32am 67.6 % H 33-66 Platelet Count May 13, 2014 9:32am 389 T/MM3 N 130-400 Potassium Level May 13, 2014 9:31am 4.7 MEQ/L N 3.6-5 Procalcitonin May 13, 2014 9:33am 0.81 NG/ML - PCT </=0.5 ng/mL - sepsis not likely;PCT >0.5 and </=2 ng/mL - sepsis possible; PCT >2 ng/mL - sepsis likely; PCT >/=10 ng/mL - systemic inflammatory response - sepsis or septic shock highly indicated. RDW Standard Deviation May 13, 2014 9:32am 53.5 FL H 36.9-50.2 Red Blood Count May 13, 2014 9:32am 3.55 M/MM3 L 4.00-5.20 Red Cell Morphology Comment May 04, 2014 6:06am Normal - Sodium Level May 13, 2014 9:31am 146 MEQ/L H 134-144 Total Bilirubin May 13, 2014 9:31am 0.60 MG/DL N 0.20-1.30 Total Protein May 13, 2014 9:31am 6.9 G/DL N 6.3-8.2 Troponin I April 29, 2014 10:17pm 0.039 ng/ml DN 0-0.12 Turbidity May 13, 2014 9:31am < 20 0-20 Urinalysis Comment April 30, [...] Has specimen been collected/obtained? Y Urine Specific [place] April 30, 2014 7:00pm <=1.005 L - Has specimen been collected/obtained? Y Urine Turbidity April 30, 2014 7:00pm Clear - Has specimen been collected/obtained? Y Urine Urobilinogen April 30, 2014 7:00pm 0.2 EU/DL - Has specimen been collected/obtained? Y Urine pH April 30, 2014 7:00pm 6.0 - Has specimen been collected/ obtained? Y Venous Blood Lactate May 13, 2014 9:31am 1.5 MMOL/L N 0.6-2.2 White Blood Count May 13, 2014 9:32am 6.0 T/MM3 N 4.5-11.0 Blood Culture Peripheral Blood April 29, 2014 10:43am NO GROWTH AFTER 5 DAYS Gram Stain Sputum-Expectorated Sputum April 30, 2014 7:00pm Name: AVIS ADAIR Unit #: [id number] : 1955 Sex: F Loc / Svc: ED DOS: 05/13/14 Signed Report #: [id number] DIAGNOSTIC IMAGING REPORT TYPE OF EXAM: CHEST 1 VIEW Dictated By: FAUSTINO SULTANA MD Indication: ITS.REASON: HYPOXIA, RECENT PNEUMONIA CHEST 1 VIEW: Comparison: May 10, 2014 Findings: Extensive bilateral perihilar patchy airspace opacities are similar to the recent comparison study. No pneumothorax. Small bilateral effusions. Heart size and mediastinal contours are grossly stable. Pulmonary vascularity is difficult to evaluate given the amount of opacity present. Impression: Persistent bilateral airspace disease could represent atypical pneumonia or edema. . Procedures Procedure Status Date Provider(s) X-RAY EXAM OF LOWER LEG completed 02/19/14 EMERGENCY DEPT VISIT completed 02/19/14 [id number] ITEM OR SERVICE completed 02/19/14 Encounters Encounter Location Date/Time Departed Emergency Room [facility] 05/13/14 8:50am Discharged Inpatient [facility] 04/29/14 12:18pm Departed Emergency Room [facility] 02/19/14 8:26am Recent Diagnosis
[2016-05-30] MEDS ORDERED: NORMAL SALINE 1,000 ML IV ONE (15:51)
--- OUTSIDE RECORDS SUMMARY | 2016-05-30 15:59 | XMS REPORT | Continuity of Care Document ---
Author Author [facility] Organization [facility] Address Unknown Phone Unavailable Care Team Providers Care Piece Presser Name Role Phone SKYLER MC DO Primary Care Physician [phone] Insurance Providers Payer Name Policy Number Subscriber Name Relationship Medicare [id number] Avis [facility] [id number] Avis Adair Self Advance Directives Directive Response [...] Condition at time of discharge: Good the monorail operator page Dr. Pena or the covering [...] F (96.8 - 99.1) Temperature (Calculated Celsius) 36.30219 degrees C (36.0 - 37.3) Pulse Rate [...] 12, 2014 8:00am 9.7 % H 0-9.0 TY-Zhu-H-Type Natriuretic Peptide May 07, 2014 4:50am 1650 [...] Has specimen been collected/obtained? Y Urine Specific [place] April 30, 2014 7:00pm <=1.005 L - [...] 2014 7:00pm Name: AVIS ADAIR Unit #: [id number] : 1955 Sex: F Loc / Sv: MED DOS: 04/29/14 Signed Report #: [id number] DIAGNOSTIC IMAGING REPORT TYPE OF EXAM: CHEST, [...] completed 02/19/14 EMERGENCY DEPT VISIT completed 02/19/14 [id number] ITEM OR SERVICE completed 02/19/14 Encounters Encounter Location Date/Time Discharged Inpatient [facility] 04/29/14 12:18pm Departed Emergency Room [facility] 02/19/14 8:26am Recent Diagnosis Severe sepsis with acute organ dysfunction Left lower lobe pneumonia Severe sepsis with acute organ dysfunction
[2016-05-30] MEDS ORDERED: ALBUTEROL/IPRATROPIUM INHAL. 2.5mg-0.5mg/3ml Neb. AEROSOL ONE (16:00)
--- OUTSIDE RECORDS SUMMARY | 2016-05-30 16:00 | XMS REPORT | Continuity of Care Document ---
Author Author [facility] Organization [facility] Address Unknown Phone Unavailable Allergies Medications Problems Procedures Results Encounters ACCT No. Visit Date/Time Discharge Status Pt. Type Provider Facility Loc./Unit Complaint [id number] 01/21/2013 14:55:00 01/21/2013 23 :59:59 CLS Outpatient
--- OUTSIDE RECORDS SUMMARY | 2016-05-30 16:00 | XMS REPORT | Continuity of Care Document ---
Author Author [facility] Organization [facility] Address Unknown Phone Unavailable Care Team Providers Care Software Packaging Engineer Name Role Phone SKYLER MC DO Primary Care Physician [phone] Insurance Providers Payer Name Policy Number Subscriber Name Relationship Medicare [id number] Avis Adair 16 Self [facility] Plan [id number] Avis Adair 16 Self Advance Directives Directive [...] F (96.8 - 99.1) Temperature (Calculated Celsius) 35.20302 degrees C (36.0 - 37.3) Pulse Rate (adult) 60 bpm (60 - 100) Respiratory Rate 18 breaths/min (10 - 20) O2 Sat by Pulse Oximetry 97 % (90 - 100) Blood Pressure 107/52 mm Hg Height (Feet) 4 feet Height (Inches) 7.00 inches Weight (Kilograms) 63.200 kg Body Mass Index (BMI) 32.0 Results Name: AVIS ADAIR Unit #: [id number] : 1955 Sex: F Loc / Svc: ED DOS: Signed Report #: [id number] DIAGNOSTIC IMAGING REPORT TYPE OF EXAM: TIB-FIB [...] Encounters Encounter Location Date/Time Departed Emergency Room [facility] 02/19/14 8:26am Departed Emergency Room [facility] 01/25/14 3:24pm Recent Diagnosis
--- OUTSIDE RECORDS SUMMARY | 2016-05-30 16:01 | XMS REPORT | Continuity of Care Document ---
Author Author [facility] Organization [facility] Address Unknown Phone Unavailable Care Team Providers Care Pump Installation And Servicer Name Role Phone SKYLER MC DO Primary Care Physician [phone] Insurance Providers Payer Name Policy Number Subscriber Name Relationship Medicare [id number] Avis Adair 18 Self [facility] Plan [id number] Avis Adair 16 Self Advance Directives Directive [...] F (96.8 - 99.1) Temperature (Calculated Celsius) 36.18836 degrees C (36.0 - 37.3) Pulse Rate (adult) 53 bpm (60 - 100) Respiratory Rate 16 breaths/min (10 - 20) O2 Sat by Pulse Oximetry 97 % (90 - 100) Blood Pressure 106/52 mm Hg Height 4 ft 7 in Weight 114 lb Body Mass Index 26.0 kg/m^2 Results Name: AVIS ADAIR Unit #: [id number] : 1955 Sex: F Loc / Svc: ED DOS: 01/25/14 Signed Report #: [id number] DIAGNOSTIC IMAGING REPORT TYPE OF EXAM: KNEE [...] Encounters Encounter Location Date/Time Registered Emergency Room [facility] 01/25/14 3:24pm Recent Diagnosis
--- OUTSIDE RECORDS SUMMARY | 2016-05-30 16:01 | XMS REPORT | Continuity of Care Document ---
Author Author [facility] Organization [facility] Address Unknown Phone Unavailable Care Team Providers Care Primary School Principal Name Role Phone SKYLER MC DO Primary Care Physician [phone] Insurance Providers Payer Name Policy Number Subscriber Name Relationship Medicare [id number] Avis Adair Self [facility] [facility] [id number] Avis Adair 16 Self Chief Complaint and Reason for Visit Chief Complaint Fever Reason for Visit [id number] Left lower lobe pneumonia Problems Medical Problems [...] PO DAILY 10/31/11 Active Fluticasone Propionate 2 [place] EA NOSTRIL DAILY 10/31/11 Active Levothyroxine Sodium [...] 3. If the office is closed, call [facility] at [phone] and have your Surgeon paged. Condition at time of discharge: Good Good room.* Condition at time of discharge: Good Plan of Care Discharge Date 05/12/14 8:05pm Disposition 02 TO [facility] Condition at Discharge Improved Instructions/Education Provided [facility] Congestive Heart Failure DI for Pneumonia -- [...] F (96.8 - 99.1) Temperature (Calculated Celsius) 36.14379 degrees C (36.0 - 37.3) Pulse Rate [...] 13, 2014 9:32am 12.4 % H 0-9.0 RT-Nim-N-Type Natriuretic Peptide May 07, 2014 4:50am 1650 [...] Has specimen been collected/obtained? Y Urine Specific [place] April 30, 2014 7:00pm <=1.005 L - [...] 2014 7:00pm Name: AVIS ADAIR Unit #: [id number] : 1955 Sex: F Loc / Svc: ED DOS: 05/13/14 Signed Report #: [id number] DIAGNOSTIC IMAGING REPORT TYPE OF EXAM: CHEST [...] completed 02/19/14 EMERGENCY DEPT VISIT completed 02/19/14 [id number] ITEM OR SERVICE completed 02/19/14 Encounters Encounter Location Date/Time Departed Emergency Room [facility] 05/13/14 8:50am Discharged Inpatient [facility] 04/29/14 12:18pm Departed Emergency Room [facility] 02/19/14 8:26am Recent Diagnosis
[2016-05-30 16:19] LABS: HCT - HEMATOCRIT 44.1 % (36-46); HGB - HEMOGLOBIN 14.6 GM/DL (12-16); MEAN CORPUSCULAR HGB 34.8 UUG (26-34); MEAN CORPUSCULAR HGB CONC(MCHC 33.1 GM/DL (31-37); MEAN CORPUSCULAR VOLUME 105.3 UM3 (80-100); RED BLOOD COUNT 4.19 M/MM3 (4.00-5.20)
[2016-05-30 16:24] LABS: WBC - WHITE BLOOD COUNT 1.5 T/MM3 (4.5-11.0)
[2016-05-30 16:25] LABS: INR 1.06 (0.76-1.04); PROTHROMBIN TIME 11.5 SEC (9.31-12.49)
--- NOTE | 2016-05-30 16:25 | NUR ---
RT AT BEDSIDE FOR DUCONNORB [place].
[2016-05-30 16:29] LABS: ALBUMIN/GLOBULIN RATIO 1.1 RATIO (1.1-2.2); ALKALINE PHOSPHATASE 88 U/L (38-126); ALT (SGPT) 30 U/L (9-52); ANION GAP 17 MEQ/L (5-15); AST (SGOT) 31 U/L (14-36); BUN/CREATININE RATIO 25 RATIO (6-26); CALCIUM 9.3 MG/DL (8.4-10.2); CHLORIDE 104 MEQ/L (98-107); CO2 - CARBON DIOXIDE 31 MEQ/L (22-30); CREATININE 1.3 MG/DL (0.7-1.2); GLOMERULAR FILTRATION RATE 42; GLUCOSE 106 MG/DL (65-110); POTASSIUM 4.8 MEQ/L (3.6-5); SODIUM 152 MEQ/L (134-144); TOTAL PROTEIN 7.6 G/DL (6.3-8.2)
[2016-05-30] MEDS ORDERED: VANCOMYCIN 1.5 G in NORMAL SALINE 500 ML IV ONE ×2 (16:30→20:00)
[2016-05-30] MEDS ORDERED: VIT236LO TOP (16:33)
[2016-05-30] MEDS ORDERED: SODI15DR7 BOTH EYES (16:33)
[2016-05-30] MEDS ORDERED: [UNRECOGNIZED DRUG - CODE] TP (16:33)
[2016-05-30 16:38] LABS: PROBNP 1090 PG/ML (0-175)
--- NOTE | 2016-05-30 16:40 | NUR ---
RADIOLOGY PT TO RADIOLOGY BY CART AT THIS TIME.
[2016-05-30] MEDS ORDERED: [UNRECOGNIZED DRUG - CODE] PO (16:41)
[2016-05-30] MEDS: CEFEPIME 1 G in NORMAL SALINE 100 ML IV SCH ×2 (16:41→22:28)
[2016-05-30] MEDS ORDERED: MINE120C3 TOP (16:41)
[2016-05-30] MEDS ORDERED: NYST15CR TOP (16:41)
[2016-05-30 16:55] LABS: ANISOCYTOSIS 1+; BAND NEUTROPHILS # 0.4 T/MM3; LYMPHOCYTES # (MANUAL) 0.2 T/MM3 (1-4.8); MONOCYTES # (MANUAL) 0.2 T/MM3 (0-0.8); NEUTROPHILS #(MANUAL)-ABSOLUTE 0.7 T/MM3 (1.8-7.7); TOTAL CELLS COUNTED 50 %
--- NOTE | 2016-05-30 17:00 | DI ---
Indication: ITS.REASON: dyspnea Procedure: CHEST, PA LATERAL: Encounter: Initial Comparison: 04/27/2016 Technique: AP and lateral radiographs of the chest were obtained. Findings: Lungs and airways: Low lung volumes. Patchy bilateral airspace opacities, most confluent within the right lower lobe. Normal pulmonary vasculature. Pleura: No pleural effusion or pneumothorax. Heart and mediastinum: The cardiomediastinal silhouette and great vessels are within normal limits. Osseous structures and soft tissues: No acute osseous abnormality is seen. Postoperative changes of median sternotomy. Degenerative disc disease of the visualized spine. Impression: Patchy bilateral airspace opacities, most confluent within the right lower lobe suggestive of pneumonia. .
--- NOTE | 2016-05-30 17:00 | NUR ---
RETURN PT RETURNED FROM RADIOLOGY BY CART AT THIS TIME.
[2016-05-30] MEDS: LEVOFLOXACIN 750 mg IVPB 750 MG in D5W 150 ML IV SCH (17:22)
[2016-05-30] MEDS: NORMAL SALINE 1,000 ML IV SCH ×3 (17:26→18:30)
[2016-05-30 17:32] LABS: BLOOD, URINE 2+ (NEGATIVE); COLOR,URINE YELLOW (YELLOW); LEUKOCYTE ESTERASE ,URINE NEGATIVE (NEGATIVE); NITRITE,URINE NEGATIVE (NEGATIVE); UROBILINOGEN,URINE 0.2 EU/DL (NORMAL)
--- NOTE | 2016-05-30 17:44 | ERPDOC ---
Departure Disposition Decision Date: May 30, 2016 Disposition Decision Time: 17:56 Disposition: 02 TO [facility] Impression Impression Impression: Primary Impression: Severe sepsis with acute organ dysfunction Severity: Severe Condition: Stable Seen By: Physician only Referrals: DARION HOLLOWAY MD (Family) Problems/Meds/Labs Reviewed?: Yes Medications reviewed and manag: Yes Follow up care ordered?: Yes Mental Status: Confused HPI - Dyspnea General Chief Complaint: Dyspnea/Respdistress Stated Complaint: FALL Time Seen by Provider: 15:51 HPI - Dyspnea Initial Comments 60-year-old female presents with dyspnea. She was going to a doctor's visit, collapsed on the way and EMS was contacted. They then brought her in on 15 L nonrebreather mask. She was initially having approximately 80% O2 saturation on the 15 L. She arrived in the ED and was suctioned, improving her O2 sats and Allergies: Coded Allergies: No Known Allergies (Unverified , 05/30/16) Past History Past Medical History Metabolic: hypothyroidism, other ENMT: Kapoor's Palsy Cardiac: CHF, other Respiratory: pneumonia Neurological: chronic disability, other Integumentary: other Hematologic: other Psychological: bipolar, depression Surgical History General: other Cardiac: other Family History Family PMH: FOUND: [place], other Vaccines Hx Influenza Vaccination: Yes (NOV 2013) Hx Pneumococcal Vaccination: Yes (JAN 2014) Positive TB skin test: No Social History Does patient use chewing tobac: No Second Hand Exposure: No Substance Use Type: does not use Alcohol Intake: none Marital Status: Single Housing: other Household Members: caregiver Service: No Current Occupational Status: unemployed Occupational Hazard: No Advance Directives: Yes Full Code Physical Exam General Vitals and Pain First Documented Vital Signs Date Time Temp Pulse Resp B/P Pulse Ox O2 Delivery O2 Flow Rate FiO2 05/30/16 15:28 98.1 77 18 95/42 97 Mask 15.00 Weight: Kilograms: 60.400 Height (feet): 0 Height (inches): 54.00 Triage Pain Scale: Progress Results/Orders Orders Procedure Category Date Status Time Cmp - Comprehensive LAB 05/30/16 Complete Metabolic 15:51 Probnp LAB 05/30/16 Complete 15:51 Cbc W/Auto LAB 05/30/16 Complete Diff-Reflex Manual 15:51 Blood Culture ABBY 05/30/16 In Process 15:51 D-Dimer LAB 05/30/16 Complete 15:51 INR LAB 05/30/16 Complete 15:51 Troponin I W LAB 05/30/16 Complete Hemolysis Index 15:51 Influenza A/B By Pcr LAB 05/30/16 In Process 15:51 EKG EKG 05/30/16 Logged 15:51 Chest, Pa & Lateral RAD 05/30/16 Resulted 15:51 Iv Lock (Ed Only) EDM 05/30/16 Transmitted 15:51 Normal Saline (Normal PHA 05/30/16 Complete Saline Iv) 15:51 Albuterol/Ipratropium PHA 05/30/16 Complete (Duoneb) 16:00 Oxygen Administration EDM 05/30/16 Transmitted 15:51 Lactate - Lactic Acid LAB 05/30/16 Complete 16:30 Lagunas (Ed) EDM 05/30/16 Transmitted 16:30 Normal Saline (Normal PHA 05/30/16 In Process Saline Iv) 16:30 Cefepime (Maxipime) PHA 05/30/16 In Process 16:30 Levofloxacin 750 Mg PHA 05/30/16 In Process Ivpb (Levaquin 750 M 16:30 Vancomycin (Vancocin) PHA 05/30/16 Complete 16:30 Pharmacy Consult CONS 05/30/16 Transmitted 16:30 Catheter Needs MALI 05/30/16 In Process Assessment 16:30 Bladder Scanner (Ed) EDM 05/30/16 Transmitted 16:30 Ct Head W/O Contrast CT 05/30/16 Taken 16:53 Vancomycin (Vancocin) PHA 05/30/16 In Process 20:00 UA, LAB 05/30/16 Complete Dip&Micro(Complete) & 17:25 Vancomycin (Vancocin) PHA 05/31/16 In Process 14:00 Place In Facility: ED ADM 05/30/16 Transmitted 17:57 Lab Results Laboratory Tests Test 05/30/16 16:11 05/30/16 16:12 05/30/16 17:25 Plasma Lactate 3.7MMOL/L White Blood Count 1.5T/MM3 Red Blood Count 4.19M/MM3 Hemoglobin 14.6GM/DL Hematocrit 44.1% Mean Corpuscular Volume 105.3UM3 Mean Corpuscular Hemoglobin 34.8UUG Mean Corpuscular Hemoglobin Concent 33.1GM/DL RDW Standard Deviation 54.9FL Platelet Count 195T/MM3 Mean Platelet Volume 10.0UM3 Immature Granulocyte % (Auto) % Neutrophils (%) (Auto) % Lymphocytes (%) (Auto) % Monocytes (%) (Auto) % Eosinophils (%) (Auto) % Basophils (%) (Auto) % Absolute Immature Granulocyte (auto T/MM3 Absolute Neutrophils (auto) T/MM3 Absolute Lymphocytes (auto) T/MM3 Absolute Monocytes (auto) T/MM3 Absolute Eosinophils (auto) T/MM3 Absolute Basophils (auto) T/MM3 Neutrophils % (Manual) 46.0% Band Neutrophils % 28.0% Lymphocytes % (Manual) 14.0% Monocytes % (Manual) 10.0% Basophils % (Manual) 2.0% Absolute Neutrophils (Manual) 0.7T/MM3 Band Neutrophils # 0.4T/MM3 Lymphocytes # (Manual) 0.2T/MM3 Monocytes # (Manual) 0.2T/MM3 Basophils # (Manual) 0.0T/MM3 Anisocytosis 1+ Macrocytosis 2+ Red Cell Morphology Comment Abnormal Prothromb Time International Ratio 1.06 D-Dimer 1041NG/ML Turbidity < 20 Sodium Level 152MEQ/L Potassium Level 4.8MEQ/L Chloride Level 104MEQ/L Carbon Dioxide Level 31MEQ/L Anion Gap 17MEQ/L Blood Urea Nitrogen 33.0MG/DL Creatinine 1.3MG/DL Glomerular Filtration Rate Calc 42 BUN/Creatinine Ratio 25RATIO Glucose Level 106MG/DL Calculated Osmolality 299MOSM/KG Calcium Level 9.3MG/DL Total Bilirubin 0.60MG/DL Icterus Index < 2 Aspartate Amino Transf (AST/SGOT) 31U/L Alanine Aminotransferase (ALT/SGPT) 30U/L Alkaline Phosphatase 88U/L Troponin I < 0.012ng/ml NM-Mhx-G-Type Natriuretic Peptide 1090PG/ML Total Protein 7.6G/DL Albumin 4.0G/DL Globulin 3.6G/DL Albumin/Globulin Ratio 1.1RATIO Chemistry Specimen Hemolysis < 15 Urine Collection Type Straight cath Urine Color Yellow Urine Turbidity Clear Urine pH 5.5 Urine Specific [place] 1.015 Urine Protein Negative Urine Glucose (UA) Negative Urine Ketones Negative Urine Blood 2+ Urine Nitrite Negative Urine Bilirubin Negative Urine Urobilinogen 0.2EU/DL Urine Leukocyte Esterase Negative Urine RBC 0-1/HPF Urine WBC None seen/HPF Urine Squamous Epithelial Cells 0-5 Urine Bacteria Trace Urine Hyaline Casts 1-3/LPF Urine Mucus Present Urine Culture Indicated Cult not indicated Influenza Virus Type A (PCR) Pending Influenza Virus Type B (PCR) Pending Medications Current ED Medications Sodium Chloride (Normal Saline IV) 1,000 ml @ 1,000 mls/hr Q1H ONCE IV Last administered on 05/30/16 16:24; Start 05/30/16 at 15:51; Stop 05/30/16 at 16:50 ; Status DC Albuterol/ Ipratropium 3 ml 3 ml O ONCE AEROSOL Last administered on 16:20; Start 05/30/16 at 16:00; Stop 05/30/16 at 16:01; Status DC Sodium Chloride 1,000 ml @ 1,000 mls/hr Q1H IV Last administered on 05/30/16 17:26; Start 05/30/16 at 16:30 Cefepime HCl 1 g/ Sodium Chloride 100 ml @ 200 mls/hr Q6H IV Last administered on 05/30/16 16:41; Start 05/30/16 at 16:30 Levofloxacin 750 mg/Dextrose/Water 150 ml @ 100 mls/hr Q24H IV Last administered on 05/30/16 17:22; Start 05/30/16 at 16:30 Vancomycin HCl 1.5 g/Sodium Chloride 500 ml @ 250 mls/hr O ONCE IV ; Start 02/03 at 16:30; Stop 05/30/16 at 17:28; Status DC Vancomycin HCl 1.5 g/Sodium Chloride 500 ml @ 250 mls/hr O ONCE IV ; Start 02/03 at 20:00; Stop 05/30/16 at 21:59 Vancomycin HCl/ Sodium Chloride (Vancocin/NS) 250 ml @ 250 mls/hr Q18H IV ; Start 05/31/16 at 14:00 Progress Progress Patient as sepsis most likely pneumonia, classified as uncertain etiology. White count is 1.5 with 28% bands, MAP was low at 63, patient also requiring 15 L nonrebreather initially. Lactate was also elevated. Patient has history of MR and Down's syndrome. She is admitted with unknown sepsis orders adding had fluid bolus and IV antibiotics started within 3 hour window. D-dimer elevated slightly greater than 1000, patient is not stable enough to sent to CT scanner currently. Dr. Genao is aware JENN TRIPP MD May 30, 2016 17:44
[2016-05-30 17:47] LABS: MUCUS,URINE PRESENT
[2016-05-30 17:48] LABS: BACTERIA,URINE TRACE (NEGATIVE); RBC,URINE 0-1 /HPF (0-3); SQUAMOUS EPITHELIAL CELL,UR 0-5; WBC,URINE NONE SEEN /HPF (0-5)
--- NOTE | 2016-05-30 17:59 | NUR ---
VANCOMYCIN CONSULT: Dx: RESPIRATORY DISTRESS Current Renal Fx: SCr = 1.3mg/dl. Will give Vancomycin LOADING DOSE 1500mg IV, followed by 1000mg IV q18h. Will continue to monitor and adjust regimen to maintain therapeutic levels. Thank you.
--- OUTSIDE RECORDS SUMMARY | 2016-05-30 18:17 | XMS REPORT | Continuity of Care Document ---
Author Author [facility] Organization [facility] Address Unknown Phone Unavailable Care Team Providers Care Lasting Machine Operator Hand Method Name Role Phone SKYLER MC DO Primary Care Physician [phone] Insurance Providers Payer Name Policy Number Subscriber Name Relationship Medicare [id number] Avis Adair Self [facility] Plan [id number] Avis Adair Self Advance Directives Directive Response [...] Condition at time of discharge: Good the boat dock operator page Dr. Pena or the covering [...] F (96.8 - 99.1) Temperature (Calculated Celsius) 36.04006 degrees C (36.0 - 37.3) Pulse Rate [...] 12, 2014 8:00am 9.7 % H 0-9.0 WK-Wyf-Q-Type Natriuretic Peptide May 07, 2014 4:50am 1650 [...] Has specimen been collected/obtained? Y Urine Specific [place] April 30, 2014 7:00pm <=1.005 L - [...] 2014 7:00pm Name: AVIS ADAIR Unit #: [id number] : 1955 Sex: F Loc / Sv: MED DOS: 04/29/14 Signed Report #: [id number] DIAGNOSTIC IMAGING REPORT TYPE OF EXAM: CHEST, [...] completed 02/19/14 EMERGENCY DEPT VISIT completed 02/19/14 [id number] ITEM OR SERVICE completed 02/19/14 Encounters Encounter Location Date/Time Discharged Inpatient [facility] 04/29/14 12:18pm Departed Emergency Room [facility] 02/19/14 8:26am Recent Diagnosis Severe sepsis with acute organ dysfunction Left lower lobe pneumonia Severe sepsis with acute organ dysfunction
--- OUTSIDE RECORDS SUMMARY | 2016-05-30 18:18 | XMS REPORT | Continuity of Care Document ---
Author Author [facility] L[facility] Organization [facility] Address Unknown Phone Unavailable Care Team Providers Care Manager Utilization Review Name Role Phone SKYLER MC DO Primary Care Physician [phone] Insurance Providers Payer Name Policy Number Subscriber Name Relationship Medicare [id number] Avis Adair 18 Self [facility] Plan [id number] Avis Adair 18 Self Advance Directives Directive [...] F (96.8 - 99.1) Temperature (Calculated Celsius) 36.43588 degrees C (36.0 - 37.3) Pulse Rate (adult) 53 bpm (60 - 100) Respiratory Rate 16 breaths/min (10 - 20) O2 Sat by Pulse Oximetry 97 % (90 - 100) Blood Pressure 106/52 mm Hg Height 4 ft 7 in Weight 114 lb Body Mass Index 26.0 kg/m^2 Results Name: AVIS ADAIR Unit #: [id number] : 1955 Sex: F Loc / Svc: ED DOS: 01/25/14 Signed Report #: [id number] DIAGNOSTIC IMAGING REPORT TYPE OF EXAM: KNEE [...] Encounters Encounter Location Date/Time Registered Emergency Room [facility] 01/25/14 3:24pm Recent Diagnosis
--- OUTSIDE RECORDS SUMMARY | 2016-05-30 18:18 | XMS REPORT | Continuity of Care Document ---
Author Author [facility] Organization [facility] Address Unknown Phone Unavailable Care Team Providers Care Measurement Psychologist Name Role Phone SKYLER MC DO Primary Care Physician [phone] Insurance Providers Payer Name Policy Number Subscriber Name Relationship Medicare [id number] Avis Adair Self [facility] [place] [facility] [id number] Avis Adair 16 Self Chief Complaint and Reason for Visit Chief Complaint Fever Reason for Visit [id number] Left lower lobe pneumonia Problems Medical Problems [...] PO DAILY 10/31/11 Active Fluticasone Propionate 2 [place] EA NOSTRIL DAILY 10/31/11 Active Levothyroxine Sodium [...] 3. If the office is closed, call [facility] at [phone] and have your Surgeon paged. Condition at time of discharge: Good Good room.* Condition at time of discharge: Good Plan of Care Discharge Date 05/12/14 8:05pm Disposition 02 TO [facility] Condition at Discharge Improved Instructions/Education Provided [facility] Congestive Heart Failure DI for Pneumonia -- [...] F (96.8 - 99.1) Temperature (Calculated Celsius) 36.58668 degrees C (36.0 - 37.3) Pulse Rate [...] 13, 2014 9:32am 12.4 % H 0-9.0 AU-Eob-H-Type Natriuretic Peptide May 07, 2014 4:50am 1650 [...] Has specimen been collected/obtained? Y Urine Specific [place] April 30, 2014 7:00pm <=1.005 L - [...] 2014 7:00pm Name: AVIS ADAIR Unit #: [id number] : 1955 Sex: F Loc / Svc: ED DOS: 05/13/14 Signed Report #: [id number] DIAGNOSTIC IMAGING REPORT TYPE OF EXAM: CHEST [...] completed 02/19/14 EMERGENCY DEPT VISIT completed 02/19/14 [id number] ITEM OR SERVICE completed 02/19/14 Encounters Encounter Location Date/Time Departed Emergency Room [facility] 05/13/14 8:50am Discharged Inpatient [facility] 04/29/14 12:18pm Departed Emergency Room [facility] 02/19/14 8:26am Recent Diagnosis
--- OUTSIDE RECORDS SUMMARY | 2016-05-30 18:18 | XMS REPORT | Continuity of Care Document ---
Author Author [facility] LIVE Organization [facility]IVE Address Unknown Phone Unavailable Care Team Providers Care Manager Child Name Role Phone SKYLER MC DO Primary Care Physician [phone] Insurance Providers Payer Name Policy Number Subscriber Name Relationship Medicare [id number] Avis Adair 18 Self [facility] Plan [id number] Avis Adair 18 Self Advance Directives Directive [...] F (96.8 - 99.1) Temperature (Calculated Celsius) 35.27992 degrees C (36.0 - 37.3) Pulse Rate (adult) 60 bpm (60 - 100) Respiratory Rate 18 breaths/min (10 - 20) O2 Sat by Pulse Oximetry 97 % (90 - 100) Blood Pressure 107/52 mm Hg Height (Feet) 4 feet Height (Inches) 7.00 inches Weight (Kilograms) 63.200 kg Body Mass Index (BMI) 32.0 Results Name: AVIS ADAIR Unit #: [id number] : 1955 Sex: F Loc / Svc: ED DOS: Signed Report #: [id number] DIAGNOSTIC IMAGING REPORT TYPE OF EXAM: TIB-FIB [...] Encounters Encounter Location Date/Time Departed Emergency Room [facility] 02/19/14 8:26am Departed Emergency Room [facility] 01/25/14 3:24pm Recent Diagnosis
--- OUTSIDE RECORDS SUMMARY | 2016-05-30 18:18 | XMS REPORT | Continuity of Care Document ---
Author Author [facility] Organization [facility] Address Unknown Phone Unavailable Allergies Medications Problems Procedures Results Encounters ACCT No. Visit Date/Time Discharge Status Pt. Type Provider Facility Loc./Unit Complaint [id number] 01/21/2013 14:55:00 01/21/2013 23 :59:59 CLS Outpatient
--- NOTE | 2016-05-30 18:19 | NUR ---
REPORT CALLED TO RAMIN FINLEY ON CCU. DENIES QUESTIONS.
--- NOTE | 2016-05-30 18:40 | NUR ---
ADM White female adm per cart to CCU-6.
[2016-05-30] MEDS: 1/2 NS 1,000 ML IV SCH (18:47)
[2016-05-30] MEDS ORDERED: LORAZEPAM 2 MG/ML INJECTION IV PRN (19:00)
[2016-05-30] MEDS ORDERED: ONDANSETRON 4mg/2ml INJECTION IV PRN (19:00)
[2016-05-30] MEDS ORDERED: MORPHINE SULFATE 2 MG SYRINGE IV PRN (19:00)
[2016-05-30] MEDS: ENOXAPARIN 60 MG/0.6 ML INJECTION SQ SCH ×2 (20:08→20:12)
--- NOTE | 2016-05-30 20:10 | NUR ---
DPOA Yessenia Austin, pt's sister/DPOA, called at this time. RN provided update on pt. Per Yessenia, we can contact Kaylynn Dubois, pt's other sister/DPOA, as primary. If unable to reach her, then Yessenia will be contacted. Pt has a third DPOA, a brother named Deni Adair. Yessenia confirmed pt as a full code. Addendum: 05/30/16 at 2144 by LEANN XIONG RN 2139 - Pt's other sister/primary DPOA, Kaylynn Torres, called at this time for update. Provided update.
--- NOTE | 2016-05-30 20:27 | NUR ---
Pt's CM Pt's CM, María Jacob, visited at this time. She is arranging for a securities sales associate to sit at bedside with pt. Pt has tendency to have some behavioral issues when her routine is broken. Contact information for CM is with face sheet in the back of pt's chart.
--- NOTE | 2016-05-30 20:59 | NUR ---
Cardiac History Pt's sister/dpoa, Yessenia, advised this RN that pt had a heart valve repair in 2007. RN added to history. In speaking with the pt's CM, María Jacob, she states, "at that time we were told that she had 8-10 years to live. So, we are right in that ballpark." Pt sees Dr. Perez, however there is some confusion as to whether it's Joey or Assem. CM states that pt was to have an EKG this past saturday, but it was postponed due to pt illness. Telehospitalist, Dr. Kerr, notified of this.
[2016-05-30] MEDS ORDERED: NORMAL SALINE 500 ML IV ONE ×2 (21:00→22:00)
--- NOTE | 2016-05-30 21:05 | NUR ---
Oxygen Pt remains on 6L O2/SM. Pt does not tolerate the nasal canula prongs - reason why she's on the simple mask. When removed, her saturations do drop down to the 70's.
--- NOTE | 2016-05-30 21:45 | NUR ---
Consent DPOA, Kaylynn Torres, provided verbal consent for PICC line placement in the a.m. She states, "as soon as possible." Advises RN that pt tends to pull out IVs.
[2016-05-30 21:50] LABS: LACTATE - LACTIC ACID 1.8 MMOL/L (0.6-2.2)
--- NOTE | 2016-05-30 22:14 | NUR ---
Hypotension Pt's BP had steadily decreased this evening. RN has been in close communication with physician. New order initially received to bolus 500cc NS. Once bolus almost complete, bp was even lower 70's systolic. Second order for NS bolus of 500cc over 2 hrs received. Currently infusion. Addendum: 05/30/16 at 2308 by LEANN XIONG RN BP cuff moved to pt's lower left leg as pt's arm was really bent and stiffened up. BP and urine output improving with 2nd IVFB. Current BP 101/59. Physician updated on improvement.
[2016-05-31] VITALS (91 sets, daily range): BP systolic 73–141; BP diastolic 38–56; PULSE 65–90; RESP 18–50; TEMP 99.7–100.5; O2SAT 82–97
[2016-05-31] MEDS: CEFEPIME 1 G in NORMAL SALINE 100 ML IV SCH ×4 (04:29→23:05)
[2016-05-31 05:14] LABS: HCT - HEMATOCRIT 34.4 % (36-46); HGB - HEMOGLOBIN 11.3 GM/DL (12-16); MEAN CORPUSCULAR HGB 34.9 UUG (26-34); MEAN CORPUSCULAR HGB CONC(MCHC 32.8 GM/DL (31-37); MEAN CORPUSCULAR VOLUME 106.2 UM3 (80-100); MEAN PLATELET VOLUME 10.8 UM3 (9.4-12.4); RED BLOOD COUNT 3.24 M/MM3 (4.00-5.20)
[2016-05-31 05:27] LABS: ALBUMIN 2.4 G/DL (3.5-5.0); ALBUMIN/GLOBULIN RATIO 0.9 RATIO (1.1-2.2); ALKALINE PHOSPHATASE 44 U/L (38-126); ALT (SGPT) 30 U/L (9-52); ANION GAP 10 MEQ/L (5-15); AST (SGOT) 23 U/L (14-36); BUN/CREATININE RATIO 22 RATIO (6-26); CALCIUM 7.2 MG/DL (8.4-10.2); CHLORIDE 113 MEQ/L (98-107); CO2 - CARBON DIOXIDE 24 MEQ/L (22-30); CREATININE 1.1 MG/DL (0.7-1.2); GLOMERULAR FILTRATION RATE 50; GLUCOSE 87 MG/DL (65-110); MAGNESIUM 1.6 MG/DL (1.6-2.3); POTASSIUM 4.7 MEQ/L (3.6-5); SODIUM 147 MEQ/L (134-144); TOTAL PROTEIN 5.2 G/DL (6.3-8.2)
[2016-05-31] MEDS: 1/2 NS 1,000 ML IV SCH ×3 (05:33→18:55)
[2016-05-31 05:57] LABS: ANISOCYTOSIS 1+; BAND NEUTROPHILS # 1.2 T/MM3; LYMPHOCYTES # (MANUAL) 0.1 T/MM3 (1-4.8); MONOCYTES # (MANUAL) 0.3 T/MM3 (0-0.8); NEUTROPHILS #(MANUAL)-ABSOLUTE 1.3 T/MM3 (1.8-7.7); TOTAL CELLS COUNTED 100 %
[2016-05-31 05:58] LABS: THYROID STIM HORMONE-TSH 0.93 MIU/L (0.47-4.68)
--- NOTE | 2016-05-31 06:09 | NUR ---
Shift Summary Pt slept off and on between cares. Due to history of downs and MR, assessments were somewhat challenging as pt was not able to answer appropriately consistently. For instance, RN asks pt if she can see her arm. Pt agrees. But, once RN touches her, she yells "no!" Yelling and crying with any cares, including just picking up the blanket. Pt had some hypotension during the night (systolic between upper 60's and low 100's), IVF boluses given. Lagunas to dependent drainage, output adequate aside from the last couple of hours. IV's to left hand, right AC, and right lower leg remain intact. 7L O2/SM maintaining saturations in the low 90's. HR 70s, sinus rhythm. Fever of 99.7*F temporal. Remains NPO. Please see other notes from the night.
[2016-05-31] MEDS ORDERED: NORMAL SALINE 500 ML IV ONE (06:45)
[2016-05-31] MEDS: NORMAL SALINE IV SCH (07:59)
[2016-05-31] MEDS: NOREPINEPHRINE IV SCH (07:59)
--- NOTE | 2016-05-31 08:42 | DI ---
Indication: ITS.REASON: fall, possible head trauma PROCEDURE: CT HEAD W/O CONTRAST: Encounter: Initial Comparison:April 10, 2016 Technique: Axial CT images through the head were performed without contrast. Iterative Reconstruction dose reducing technique was utilized. FINDINGS: Mild to moderate generalized atrophy. The ventricles are of normal size, shape, and configuration for the patient's age. There is no evidence of acute intracranial hemorrhage, midline displacement, or mass effect. There are scattered areas of low attenuation in the white matter which most likely represent changes of chronic microvascular ischemia. The CT attenuation of the brain parenchyma is otherwise normal within the cerebellum, brain stem, and cerebral hemispheres. The tympanic cavities and mastoid air cells are free of appreciable disease. There are no definite fractures of the skull base, calvarium, or visualized portion of the midface. IMPRESSION: No CT evidence of acute traumatic intracranial injury. There is a preliminary report by virtual radiologic. .
--- NOTE | 2016-05-31 08:49 | DI ---
Indication: ITS.REASON: Elevated D - dimer PROCEDURE: US VENOUS DUPLEX, LOWER EXT BI: Encounter: Initial Comparison: None Technique: Color Doppler duplex and grayscale sonographic imaging of both lower extremities was performed. Findings: There is no evidence for acute deep venous thrombosis in either thigh. Specifically, serial graded compression was performed from the inguinal ligament to the popliteal bifurcation, bilaterally, demonstrating appropriate compressibility of the deep venous system. In addition, color and pulsed Doppler demonstrate appropriate spontaneous flow, variation with respiration, and augmentation with calf compression. At the ankle, normal flow is identified in the posterior tibial veins; these vessels are also normal in caliber. Impression: No evidence of acute DVT in either lower limb. .
--- NOTE | 2016-05-31 08:53 | DI ---
Indication: ITS.REASON: F/U PROCEDURE: CHEST 1 VIEW: Encounter: Initial Comparison: May 30, 2016 Findings: Worsening airspace consolidation in the left lower lobe. Continued patchy right basilar airspace disease. Small effusions. No pneumothorax. Heart size and mediastinal contours are stable. Impression: Worsening left lower lobe consolidation. .
--- NOTE | 2016-05-31 09:00 | NUR ---
AM Care given, with lots of yelling and crying. Skin in good condition except chronic rash under left breast. Sats 88-89% with 10l Simple mask. levophed going at 2 mcg/minute, SBPs continue in 80s.
[2016-05-31] MEDS: ENOXAPARIN 60 MG/0.6 ML INJECTION SQ SCH ×2 (09:20→21:23)
[2016-05-31] MEDS: ALBUTEROL/IPRATROPIUM INHAL. 2.5mg-0.5mg/3ml Neb. AEROSOL SCH ×4 (10:15→19:29)
--- NOTE | 2016-05-31 10:15 | PNPDOC ---
Subjective Date DATE: 05/31/16 TIME: 09:54 Subjective F/U: Severe sepsis, pneumonia, acute respiratory failure Resting in bed. Awake, alert but non verbal (baseline). Needed several IV boluses overnight as BP low. Norepinephrine started this am. Urine output decreased: I>O. CXR with increased consolidation. O2 saturations maintaining on 6L with mask. Sodium decreased to 147. Creatinine 1.1. WBC 3.3 with shift. Objective Vital Signs Vital signs Vital Signs Date Time Temp Pulse Resp B/P Pulse Ox O2 Delivery O2 Flow Rate FiO2 05/31/16 04:14 77 24 05/31/16 03:30 89/53 92 Mask 6.00 05/31/16 00:30 99.7 Height (Feet): 4 Height (Inches): 6.00 Weight (Kilograms): 59.700 General General Appearance: Alert, Obese, Well Nourished, Well Developed, Other (Alert and tracks with eyes), Moderate Distress Eyes (Brief) Eyes: FOUND: EOMI, PERRL, NOT FOUND: scleral icterus ENMT (Brief) ENMT: FOUND: hearing intact, mucosa moist Neck (Brief) Neck: FOUND: midline, NOT FOUND: nuchal rigidity, spasm Respiratory (Brief) Respiratory: FOUND: other (Mild resp distress with O2, shallow breathing. ), rales, NOT FOUND: clear all olivares (Coares bilaterally), wheezes Cardiovascular (Brief) Cardiac: FOUND: pedal edema (+2), regular rate, regular rhythm Abdomen (Brief) Abdominal: FOUND: soft, NOT FOUND: BS normo active x4 (Decreased ), distended, tender (Brief) Female: FOUND: other (Lagunas in place ) Extremities (Brief) Extremity : Side: Bilateral Extremity: leg Extremity Finding: FOUND: edema (+2), other (scd) Musculoskeletal (Brief) Musculoskeletal: FOUND: extremities move equally, NOT FOUND: spasm Integumentary (Brief) Integumentary: FOUND: dry, warm Neurologic (Brief) Neurological: FOUND: cranial 2-12 intact, motor (Intact ) Psychiatric (Brief) Psychiatric: FOUND: alert, normal affect, other (No verbal ) Laboratory Laboratory Laboratory Tests 05/30/16 16:12 05/31/16 04:43 Laboratory Tests 05/30/16 16:12 05/31/16 04:43 Microbiology Microbiology Microbiology Date/Time Source Procedure Growth Status 05/30/16 16:12 Peripheral/Iv Start Blood Culture - Preliminary CULTURE INITIATED - RESULTS PENDING Resulted 05/30/16 16:12 Peripheral/Iv Start Blood Culture - Preliminary CULTURE INITIATED - RESULTS PENDING Resulted Assessment & Plan Problems: (1) Severe sepsis Status: Acute Assessment & Plan: Source pneumonia (2) Pneumonia Status: Acute Qualifiers: Laterality: right (3) Acute respiratory failure with hypoxemia Status: Acute (4) Leukopenia Status: Acute Qualifiers: Leukopenia type: unspecified Qualified Codes: D72.819 - Decreased white blood cell count, unspecified (5) Hypernatremia Status: Acute Assessment & Plan: POA (6) Hypotension Status: Acute Qualifiers: Hypotension type: unspecified hypotension type Qualified Codes: I95.9 - Hypotension, unspecified (7) Down's syndrome Status: Chronic (8) 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 Continue norepinephrine for BP support - target MAP 65 or above. Decrease 1/2NS to 100 cc/hr - valvular heart disease places increased concern for volume overload. Continue Lovenox for anticoagulation - LE US without evidence of clot. Possible CTA lungs tomorrow if pt status improves. Worry contrast dye at this time would be detrimental to renal function. Continue supplemental O2. Will add DuoNeb and Budesonide for respiratory support. Speech to check on swallow function. Lagunas to DD to monitor urine output. Recheck BMP, CBC, and magnesium in am due to severe sepsis. Pt critically ill. ICU care needs paramount. Case discussed with nursing and family. Time spent with pt care 35 minutes. DVT Prophylaxis: SCD'S, Lovenox Code Status Full Code Hospital Course Summary Disclaimer The hospital course summary below is not to be considered part of the above Progress Note. Hospital Course Summary 05/30 05/31 Resting in bed. Awake, alert but non verbal (baseline). Needed several IV boluses overnight as BP low. Norepinephrine started this am. Urine output decreased: I>O. CXR with increased consolidation. O2 saturations maintaining on 6L with mask. Sodium decreased to 147. Creatinine 1.1. WBC 3.3 with shift. Continue with levofloxacin, cefepime, and vancomycin for pulmonary coverage. Continue norepinephrine for BP support - target MAP 65 or above. Decrease 1/2NS to 100 cc/hr - valvular heart disease places increased concern for volume overload. Continue Lovenox for anticoagulation - LE US without evidence of clot. Possible CTA lungs tomorrow if pt status improves. Worry contrast dye at this time would be detrimental to renal function. Continue supplemental O2. Will add DuoNeb and Budesonide for respiratory support. Speech to check on swallow function. Lagunas to DD to monitor urine output. Recheck BMP, CBC, and magnesium in am due to severe sepsis. Pt critically ill. ICU care needs paramount. SUYAPA PHILIPPE MD May 31, 2016 09:57
--- NOTE | 2016-05-31 10:35 | NUR ---
INfusion nurse here to put in PICC line.
--- NOTE | 2016-05-31 11:39 | NUR ---
ANNETTE CM LEFT CONTACT INFORMATION AT BEDSIDE. PT IS NON VERBAL. ANNETTE SPOKE WITH PT GUARDIAN YIMI. CM EXPLAINED ROLE AND PROVIDED CONTACT INFORMATION. PT WILL RETURN TO [facility]. ANNETTE [facility]PO[facility] AND THEY WILL TRANSPORT PT AT TIME OF D.C. ANNETTE PROVIDED MAUREEN WITH CONTACT INFORMATION. MAUREEN AWARE TO CONTACT CM IF NEEDS ARISE.
--- NOTE | 2016-05-31 11:45 | NUR ---
PICC insertion in R arm completed at this time, double lumen.
--- NOTE | 2016-05-31 13:09 | NUR ---
PT NPO TODAY DUE TO MEDICAL STATUS. SPEECH WILL ATTEMPT DYSPHAGIA EVALUATION ON 06/01.
[2016-05-31] MEDS: VANCOMYCIN 1,000 MG in NORMAL SALINE 250 ML IV SCH (13:34)
--- NOTE | 2016-05-31 15:00 | NUR ---
Yells, with cares, turns, calms with talking to. Has had [facility] staff here today. SBPs better; in 90s, Levophed continues at 4 mcg/min or 30 ccs.
[2016-05-31] MEDS: LEVOFLOXACIN 750 mg IVPB 750 MG in D5W 150 ML IV SCH (16:13)
[2016-05-31] MEDS: MORPHINE SULFATE 2 MG SYRINGE IV PRN (20:48)
--- NOTE | 2016-05-31 22:30 | NUR ---
Sister/DPOA Sister/DPOA, Kaylynn Torres, arrived from [place] at this time. Pt very happy to see her, spirits lifted. Kaylynn will remain at the bedside through the night. RN answered questions and provided details about pt's cares. Appreciative. Chair bed and linens provided.
--- NOTE | 2016-05-31 23:04 | HPF ---
CHIEF COMPLAINT The patient collapsed, unresponsive. HISTORY OF PRESENT ILLNESS Ms. Adair is a 60-year-old female with trisomy 21 who to [facility] Emergency Room by EMS secondary to collapsing. She was going to see her primary provider earlier today. While she was being checked into clinic they did note that patient collapsed onto the ground. She was less responsive. Oxygen saturations were checked and found to be in the low 80s. EMS was activated. The patient was subsequently taken to [facility] Emergency Room for evaluation. She did receive suctioning in the emergency room which helped improve her saturations. Lab was obtained showing leukopenia with white count 1.5 and 46% neutrophils with 28% bands. Her serum sodium is elevated at 152. Plasma lactate is elevated at 3.7. Blood pressure was low at 95/42. She was given a 2-liter fluid bolus (which would give her 30 mL/kg). Blood pressure did increase somewhat. The patient's level of consciousness did improve, to point where she would be awake and track. With her a Down's it is difficult for the patient to answer questions reliably. Chest x-ray was obtained showing evidence of infiltrate. Urine is not showing evidence of infection. In light of her severe sepsis Dr. Genao was notified and patient was subsequently placed in inpatient admission status at [facility] for further evaluation and treatment. PAST MEDICAL HISTORY Down syndrome/trisomy 21. Severe developmental delay Hypothyroidism. Stage III chronic kidney disease. 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 CHF secondary to mitral regurgitation. Congenital heart defect status post AV canal repair with residual significant mitral regurgitation. Chronic dysphagia. Measles, mumps and chickenpox as a child. History of cataract surgery in 1986. ALLERGIES No known drug allergies. MEDICATIONS Tylenol 1000 mg t.i.d. Ventolin one puff q.i.d. p.r.n. Antacid chewable tablets 5 mg t.i.d. p.r.n. Vitamin D3 1500 units daily. Celexa 20 mg daily. Clotrimazole topically b.i.d. T-gel shampoo twice a week on Saturday, Saturday. Divalproex sodium 250 mg b.i.d. Colace 100 mg b.i.d. p.r.n. constipation. Flonase two sprays each nostril daily. Lasix 20 mg daily. Glucosamine sulfate 1500 mg b.i.d. with breakfast and lunch. Glucosamine sulfate 500 mg with supper. Robitussin-DM 5 mL q.6h. p.r.n. cough. Levothyroxine 0.075 mg daily. Claritin 10 mg daily. Aloe [place] topically b.i.d. Eucerin cream topically b.i.d. p.r.n. Theragran multivitamin daily. Risperdal 0.25 mg b.i.d. [id number] one drop both eyes daily. Trazodone 100 mg q.h.s. Triamcinolone topically b.i.d. Cetaphil moisturizing lotion topically t.i.d. Baby oil topically p.r.n. flaky scalp. Desenex ointment p.r.n. SOCIAL HISTORY Patient is a single female who resides at [facility]. She is disabled. She sees Dr. Geovanna Zepeda for primary care. She does not smoke or use alcohol. FAMILY HISTORY Significant for father dying at age 47 of [place]. REVIEW OF SYSTEMS As above. Accurate review of systems is essentially unobtainable secondary to patient's Down syndrome and acute illness. PHYSICAL EXAMINATION Vitals: Height 54 inches. Weight 59.7 kg. BMI 31.7. Temperature 98.1, pulse 77/regular, respiratory rate 18/ unlabored. Blood pressure 95/42, 97% saturation on 15 L per simple mask. GENERAL: Well-developed, well-nourished female who is awake and interacts appropriately. She will make eye contact. She will answer questions with short phrases but not reliably. HEENT: NC/AT. PERROTIS. EOMI. Mucous membranes moist. NECK: Supple. LUNGS: Decreased breath sounds bilaterally. I am hearing coarse breath sounds bilaterally. With oxygen patient breathes comfortably. CARDIOVASCULAR: Regular rate and rhythm. ABDOMEN: Soft, obese, nontender. Bowel sounds are hypoactive. EXTREMITIES: No clubbing or cyanosis. NEUROLOGIC: Patient is awake and alert. Cranial nerves II-XII appear grossly intact. I am not appreciating focal deficits. PSYCHIATRIC: Patient is awake and alert. She will track with her eyes and attempt to communicate. She is not agitated or restless at this time. SKIN: Warm and dry. LABORATORY White blood count is 1.5 with 46% neutrophils and 28% bands. Hemoglobin is 14.6 with hematocrit 44.1, MCV 105.3 and platelets 195,000. Serum sodium is 152, potassium 4.8, chloride 104, CO2 31, anion gap elevated at 17 with BUN 33, creatinine 1.3, GFR 42 and blood glucose 106. Calculated OSMO is elevated to 299. Transaminases are unremarkable. Troponin I is less than 0.0128. ProBNP is 1090. Plasma lactate is 3.7. INR is 1.06. D-dimer is 1041. UA reveals 2+ blood with 0-1 RBCs/HPF. Trace bacteria is present. Influenza type A and B are both negative. ASSESSMENT 1. Severe sepsis as manifested by leukopenia, hypotension, hypoxemia and lactate elevated at greater than 2. Source is pneumonia. 2. Pneumonia. 3. Hypoxemia. 4. Leukopenia. 5. Hypernatremia (present on admission). 6. Hypothyroidism. 7. Trisomy 21. 8. Severe developmental delay 9. Congestive heart failure secondary to valvular disease - mitral regurgitation. 10. Stage III chronic kidney disease. 11. Chronic dysphagia. 12. Allergic rhinitis. 13. Elevated D-dimer - probable secondary to sepsis. 14. Obesity with BMI 31.7. PLAN 1. Will place patient in inpatient admission status at [facility] under the care of Dr. Genao. Anticipate greater than two midnights of care is needed. 2. Initiate triple antimicrobial therapy consisting of cefepime 1 g IV q.6h. along with levofloxacin 750 mg IV q.24h. and vancomycin per pharmacy protocol for empiric antimicrobial coverage of sepsis patient associated with healthcare. 3. Continue with IV fluids. She has received fluid bolus appropriately. Will initiate 1/2 NS at 125 mL/hr, watching for volume overload in light of her valvular heart disease. 4. Lagunas catheter has been placed so we can monitor urine output closely. 5. Recheck lactate. 6. Initiate SCDs as well as Lovenox for DVT prophylaxis. As her D-dimer is elevated will initiate full-dose Lovenox. With her severe sepsis and respiratory status I was quite leery of having the patient undergoing CT PE protocol. Additionally, with her low blood pressures and stage III chronic kidney disease this could cause significant acute kidney injury. Will monitor the patient's symptoms, considering further CT as prudent. 7. Will check Dopplers of lower extremities in light of elevated D-dimer to exclude DVT. 8. The patient will be n.p.o. until Speech can evaluate her swallow. She does have chronic dysphagia. 9. Hold on ordering oral medications until swallow is cleared. 10. Have Zofran available as needed for nausea. 11. May have morphine and Ativan available as needed for anxiety, agitation, air hunger and pain. 12. Recheck CBC, BMP and magnesium in a.m. 13. The patient will be FULL CODE as per request. 14. Patient's care will be returned to Dr. Zepeda at time of discharge from [facility]. VAL
[2016-06-01] VITALS (103 sets, daily range): BP systolic 69–146; BP diastolic 36–70; PULSE 77–114; RESP 26–66; TEMP 99–102.8; O2SAT 78–96
[2016-06-01] MEDS: MORPHINE SULFATE 2 MG SYRINGE IV PRN ×3 (00:17→21:46)
--- NOTE | 2016-06-01 00:49 | NUR ---
BGM Pt diaphoretic. RN check BGM as precaution. Result of 98.
[2016-06-01] MEDS: NORMAL SALINE IV SCH ×2 (02:57→19:35)
[2016-06-01] MEDS: NOREPINEPHRINE IV SCH ×2 (02:57→19:35)
[2016-06-01] MEDS: ALBUTEROL/IPRATROPIUM INHAL. 2.5mg-0.5mg/3ml Neb. AEROSOL PRN (03:40)
--- NOTE | 2016-06-01 03:52 | NUR ---
Hypotension/Respiratory Pt's BP has been somewhat stable through the night on levophed gtt. However, at this time, BP begins to drop down to 60's systolic. RN has titrated the levophed up to 5mcg/min. Oxygen demand has increased - started shift at 6L O2, now at 10L O2/SM with oxygen saturation in the low 90's. RT provided breathing treatment. Lungs auscultated and crackles throughout. RN contacted physician, Dr. Harden. Due to concern of fluid overload, IVF stopped. Discussed option of bipap. Due to pt's inability to comprehend and inability to tolerate bipap, we will hold off and see if there is any improvement from stopping IVF first. Will monitor closely and keep in close communication with physician. RN provided this information to DPOA/sister, Kaylynn Wislon, at bedside. Verbalizes understanding.
[2016-06-01] MEDS: CEFEPIME 1 G in NORMAL SALINE 100 ML IV SCH ×4 (04:36→22:45)
[2016-06-01 05:12] LABS: HCT - HEMATOCRIT 29.7 % (36-46); HGB - HEMOGLOBIN 9.5 GM/DL (12-16); MEAN CORPUSCULAR HGB 34.1 UUG (26-34); MEAN CORPUSCULAR VOLUME 106.5 UM3 (80-100); MEAN PLATELET VOLUME 11.9 UM3 (9.4-12.4); RED BLOOD COUNT 2.79 M/MM3 (4.00-5.20); WBC - WHITE BLOOD COUNT 8.2 T/MM3 (4.5-11.0)
[2016-06-01 05:25] LABS: ANION GAP 10 MEQ/L (5-15); BUN/CREATININE RATIO 19 RATIO (6-26); CALCIUM 7.4 MG/DL (8.4-10.2); CHLORIDE 115 MEQ/L (98-107); CO2 - CARBON DIOXIDE 21 MEQ/L (22-30); CREATININE 1.1 MG/DL (0.7-1.2); GLOMERULAR FILTRATION RATE 50; GLUCOSE 84 MG/DL (65-110); MAGNESIUM 1.7 MG/DL (1.6-2.3); POTASSIUM 3.8 MEQ/L (3.6-5); SODIUM 146 MEQ/L (134-144)
--- NOTE | 2016-06-01 06:22 | NUR ---
Shift Summary Pt did not sleep very well tonight. When asked if in pain, pt replies 'yes.' RN admin 1mg PRN Morphine twice during the shift. Hesitant to do larger dose due to low BPs. BPs stable with levophed gtt. This morning, bp's dropped a bit. RN titrated up the levophed to 5mcg/min to get to the target MAP of 65. Oxygen demand increased during the night. Currently on 10L O2/SM. IVF DC'd due to suspected fluid overload. Monitoring closely. Lagunas with adequate output. Pt continues to yell out with cares. However if cares are explained to pt, she seems to do better. Responds well to positive feedback and encouragement. When upset, pt observed throwing her head into her pillow repeatedly. Pt's sister/dpoa, Kaylynn Wilson, slept at bedside.
[2016-06-01 06:30] LABS: BAND NEUTROPHILS # 2.4 T/MM3; LYMPHOCYTES # (MANUAL) 0.9 T/MM3 (1-4.8); MONOCYTES # (MANUAL) 0.2 T/MM3 (0-0.8); NEUTROPHILS #(MANUAL)-ABSOLUTE 4.7 T/MM3 (1.8-7.7); TOTAL CELLS COUNTED 100 %
[2016-06-01 06:31] LABS: ANISOCYTOSIS 1+
[2016-06-01] MEDS: ALBUTEROL/IPRATROPIUM INHAL. 2.5mg-0.5mg/3ml Neb. AEROSOL SCH ×4 (08:43→19:25)
[2016-06-01] MEDS: ENOXAPARIN 60 MG/0.6 ML INJECTION SQ SCH ×2 (08:49→20:49)
[2016-06-01] MEDS: VANCOMYCIN 1,000 MG in NORMAL SALINE 250 ML IV SCH (08:49)
--- NOTE | 2016-06-01 10:21 | NUR ---
O2 SATURATION/SENSORY/MITCHELL PT SATS DECREASED TO HIGH 70s WITH BREATHING TREATMENT DUE TO PT RESISTANCE, BP ELEVATED TO 146/56 WITH RR 30-40s. PT SATS DECREASED TO LOW 70s DURING BATHING CARES DUE TO PT RESISTANCE AND PT AWARENESS OF MITCHELL CATHETER AND DESIRE TO PULL IT OUT IT WAS "HURTING." RECEIVED ORDER FROM DR. PHILIPPE TO DISCONTINUE MITCHELL. PT CONTINUED TO BE AGITATED AFTER MITCHELL REMOVAL. WITH ONGOING ASSURANCE FROM RN AND NS, PT EVENTUALLY CALMED AND SATS SLOWLY INCREASED TO 90%, BP 97/52, HR 90. PT SISTER, DIPAK GOMEZ, DPOA #1, AT BEDSIDE, AND WAS SOMEWHAT HELPFUL IN CALMING PT. PT IS RESTING IN BED QUIETLY AT THIS TIME.
--- NOTE | 2016-06-01 11:04 | PNPDOC ---
Subjective Date DATE: 06/01/16 TIME: 10:09 Subjective F/U: Severe sepsis, pneumonia, acute respiratory failure Awake and alert. Uncomfortable-complaining that Lagunas bothersome. Resp rate and O2 need increases as pt irritated. Did receive MS overnight. IVF stopped by Tele Hospitalist overnight do to worry of volume. Minimal verbal response - yes /no answers. ROS limited secondary to pt's Down's. Objective Vital Signs Vital signs Vital Signs Date Time Temp Pulse Resp B/P Pulse Ox O2 Delivery O2 Flow Rate FiO2 06/01/16 08:43 89 06/01/16 08:43 Mask 10.00 06/01/16 08:43 32 91 06/01/16 08:00 99.1 107/59 Height (Feet): 4 Height (Inches): 6.00 Weight (Kilograms): 59.700 General General Appearance: Alert, Obese, Well Nourished, Well Developed, Mild Distress , Looks Stated Age Eyes (Brief) Eyes: FOUND: EOMI, PERRL, NOT FOUND: scleral icterus ENMT (Brief) ENMT: FOUND: hearing intact, mucosa moist Neck (Brief) Neck: FOUND: midline, NOT FOUND: nuchal rigidity, spasm Respiratory (Brief) Respiratory: NOT FOUND: clear all olivares (Coarse bilaterally, scattered crackles. Shallow breathing. ), rales, wheezes Cardiovascular (Brief) Cardiac: FOUND: pedal edema (+2), regular rate, regular rhythm Abdomen (Brief) Abdominal: FOUND: soft, NOT FOUND: BS normo active x4, distended, tender Extremities (Brief) Extremity : Side: Bilateral Extremity: leg Extremity Finding: FOUND: edema (+2 ) Musculoskeletal (Brief) Musculoskeletal: FOUND: extremities move equally, NOT FOUND: deformity, spasm Integumentary (Brief) Integumentary: FOUND: dry, warm Neurologic (Brief) Neurological: FOUND: cranial 2-12 intact, motor (Intact ) Psychiatric (Brief) Psychiatric: FOUND: alert, normal affect Laboratory Laboratory Laboratory Tests 05/30/16 16:12 05/31/16 04:43 06/01/16 04:08 Laboratory Tests 05/30/16 16:12 05/31/16 04:43 06/01/16 04:08 Microbiology Microbiology Microbiology Date/Time Source Procedure Growth Status 05/30/16 16:12 Peripheral/Iv Start Blood Culture - Preliminary NO GROWTH AFTER 24 HOURS Resulted 05/30/16 16:12 Peripheral/Iv Start Blood Culture - Preliminary NO GROWTH AFTER 24 HOURS Resulted Assessment & Plan Problems: (1) Severe sepsis Status: Acute Assessment & Plan: Source pneumonia (2) Pneumonia Status: Acute Qualifiers: Laterality: right (3) Acute respiratory failure with hypoxemia Status: Acute (4) Leukopenia Status: Resolved Qualifiers: Leukopenia type: unspecified Qualified Codes: D72.819 - Decreased white blood cell count, unspecified (5) Hypernatremia Status: Acute Assessment & Plan: POA (6) Hypotension Status: Acute Qualifiers: Hypotension type: unspecified hypotension type Qualified Codes: I95.9 - Hypotension, unspecified (7) Down's syndrome Status: Chronic (8) CHF due to valvular disease Status: Chronic (9) Stage III chronic kidney disease Status: Chronic (10) Hypothyroidism Status: Chronic (11) Dysphagia Status: Chronic Qualifiers: Dysphagia type: oropharyngeal phase Qualified Codes: R13.12 - Dysphagia, oropharyngeal phase (12) Obesity (BMI 30-39.9) Status: Chronic Plan/Intensity of Service IVF stopped due to concern for volume overload. Monitor BP. Continue with levofloxacin, cefepime, and vancomycin for pulmonary coverage. Continue norepinephrine for BP support - target MAP 65 or above. Wean as able. Pt does tend to run lower BP in outpatient setting. Continue Lovenox for anticoagulation With continued need for norepinephrine, worry about having patient off unit. Worry contrast dye at this time would be detrimental to renal function. Continue supplemental O2 - weaning as able. Using mask as pt not tolerating NC due to discomfort of canula. Continue DuoNeb and Budesonide for respiratory support. Speech to check on swallow function. Lagunas removed due to pt discomfort with Lagunas. Recheck CMP, CBC, and magnesium in am due to severe sepsis. Pt critically ill. ICU care needs paramount. Case discussed with nursing and family. Time spent with pt care 35 minutes. DVT Prophylaxis: Lovenox Code Status Full Code Hospital Course Summary Disclaimer The hospital course summary below is not to be considered part of the above Progress Note. Hospital Course Summary 05/[address] patient in inpatient admission status at [facility] under the care of Dr. Genao. Anticipate greater than two midnights of care is needed. Initiate triple antimicrobial therapy consisting of cefepime 1 g IV q.6h. along with levofloxacin 750mg IV q.24h. and vancomycin per pharmacy protocol for empiric antimicrobial coverage of sepsis patient associated with healthcare. Continue with IV fluids. She has received fluid bolus appropriately. Will initiate 1/2 NS at 125mL/hr, watching for volume overload in light of her valvular heart disease. Lagunas catheter has been placed so we can monitor urine output closely. Recheck lactate. Initiate SCDs as well as Lovenox for DVT prophylaxis. As her D-dimer is elevated will initiate full-dose Lovenox. With her severe sepsis and respiratory status I was quite leery of having the patient undergoing CT PE protocol. Additionally, with her low blood pressures and stage III chronic kidney disease this could cause significant acute kidney injury. Will monitor the patient's symptoms, considering further CT as prudent. Will check Dopplers of lower extremities in light of elevated D-dimer to exclude DVT NPO until Speech can evaluate her swallow. She does have chronic dysphagia. Hold on ordering oral medications until swallow is cleared. Have Zofran available as needed for nausea. May have morphine and Ativan available as needed for anxiety, agitation, air hunger and pain. Recheck CBC, CMP and magnesium in a.m. The patient will be FULL CODE as per request. Patient's care will be returned to Dr. Zepeda at time of discharge from [facility]. 05/31 Resting in bed. Awake, alert but non verbal (baseline). Needed several IV boluses overnight as BP low. Norepinephrine started this am. Urine output decreased: I>O. CXR with increased consolidation. O2 saturations maintaining on 6L with mask. Sodium decreased to 147. Creatinine 1.1. WBC 3.3 with shift. Continue with levofloxacin, cefepime, and vancomycin for pulmonary coverage. Continue norepinephrine for BP support - target MAP 65 or above. Decrease 1/2NS to 100 cc/hr - valvular heart disease places increased concern for volume overload. Continue Lovenox for anticoagulation - LE US without evidence of clot. Possible CTA lungs tomorrow if pt status improves. Worry contrast dye at this time would be detrimental to renal function. Continue supplemental O2. Will add DuoNeb and Budesonide for respiratory support. Speech to check on swallow function. Lagunas to DD to monitor urine output. Recheck BMP, CBC, and magnesium in am due to severe sepsis. Pt critically ill. ICU care needs paramount. 06/01 Awake and alert. Uncomfortable-complaining that Lagunas bothersome. Resp rate and O2 need increases as pt irritated. Did receive MS overnight. IVF stopped by Tele Hospitalist overnight do to worry of volume. Minimal verbal response - yes /no answers. ROS limited secondary to pt's Down's. IVF stopped due to concern for volume overload. Monitor BP. Continue with levofloxacin, cefepime, and vancomycin for pulmonary coverage. Continue norepinephrine for BP support - target MAP 65 or above. Wean as able. Pt does tend to run lower BP in outpatient setting. Continue Lovenox for anticoagulation With continued need for norepinephrine, worry about having patient off unit. Worry contrast dye at this time would be detrimental to renal function. Continue supplemental O2 - weaning as able. Using mask as pt not tolerating NC due to discomfort of canula. Continue DuoNeb and Budesonide for respiratory support. Speech to check on swallow function. Lagunas removed due to pt discomfort with Lagunas. Recheck CMP, CBC, and magnesium in am due to severe sepsis. Pt critically ill. ICU care needs paramount. SUYAPA GENAO MD Jun 01, 2016 10:14
--- NOTE | 2016-06-01 12:00 | NUR ---
ELEVATED HR HR 160-200s ON MONITOR SCREEN, NOT MAINTAINED. UPON ASSESSMENT OF PT, PT WAS OBSERVED TO BE CLAPPING HANDS. PT IS NOT SYMPTOMATIC. SISTER REPORTS THAT SHE HAS NOT KNOWN PT TO CLAP HANDS. WILL CONTINUE TO MONITOR.
--- NOTE | 2016-06-01 13:45 | NUR ---
STATUS PT IS EXTREMELY SENSITIVE WITH TOUCH. RN ENTERS ROOM CASUALLY, AND SPEAKS IN LOW TONES TO PT, EXPLAINING ALL CARES PRIOR TO TOUCHING PT. PT RESPONDS WITH GUARDING AND PULLING AWAY DURING CARES, CRYING AND YELLING OUT. AFTER CARES, RN REMAINS WITH PT, CALMING PT AND WATCHING O2 NEEDS RECOVER. GROUP CARE WORKER, PRIMARY RN AND SN GAVE STUFFED BUNNY TO PT TO LIFT HER SPIRITS (THIS GIFT WAS DISCUSSED WITH PT SISTER IN ADVANCE).
--- NOTE | 2016-06-01 15:21 | NUR ---
SPEECH THERAPY: DYSPHAGIA ST attempted dysphagia evaluation x2 today. ST and ST grad student provided oral care to pt this afternoon. Pt would not allow O2 per nc and pushed hands away. Pt declined trials of applesauce or juice; pt became agitated and pushed food away, verbally expressing "no". O2 mask was placed however, pt pushed mask away. Sats dropped to 60's and RN reported to room. Pt c/o needing a bowel movement. Further assessment deferred. Recommend frequent oral care. ST will attempt dysphagia evaluation as soon as pt is compliant.
--- NOTE | 2016-06-01 19:00 | NUR ---
NUTRITION/O2 SATS PT WAS ENCOURAGED TO EAT DYSPHAGIA DIET AND HONEY THICKENED LIQUIDS. RN AND NT AT BEDSIDE, WITH PT FAMILY, TO SUPERVISE FEEDING. PT WOULD NOT TOLERATE NC IN ORDER TO EAT. RN AND NT WERE UNSUCCESSFUL WITH FEEDING PT WHILE SIMPLE MASK IN PLACE, PT BECAME HIGHLY AGITATED AND WAS NOT ABLE TO BE CALMED EASILY. O2 SATS DROPPED TO THE LOW 80's, WITH O2 BEING INCREASED WITH LITTLE EFFECT. PT WAS REPOSITIONED AND RT GAVE SCHEDULED TREATMENT. PT WAS AGAIN WITH RT CARES AND NOT ABLE TO BE CALMED EASILY. O2 SATS WERE NOT RESPONDING, PT REMAINED AT 85-86%. RN CONTACTED DR. PHILIPPE AND RECD ONE TIME ORDER FOR IV LASIX 40 MG. PT IS RESTING IN BED, SISTER AT BEDSIDE.
[2016-06-01] MEDS: LEVOFLOXACIN 750 mg IVPB 750 MG in D5W 150 ML IV SCH (19:01)
[2016-06-01] MEDS ORDERED: FUROSEMIDE 40 MG/4 ML INJECTION IV ONE (19:15)
[2016-06-01] MEDS: BUDESONIDE INH.SOLN. 0.5mg/2ml NEB AEROSOL SCH (19:25)
[2016-06-01] MEDS: ACETAMINOPHEN 650 MG SUPPOSITORY RECTALLY PRN (20:50)
--- NOTE | 2016-06-01 22:09 | NUR ---
STATUS Report received in SBAR at . Introduced self to pt et pt sister Arlene. All cares assumed. Pt is has trisomy 21 Downs Syndrome. Pt is very touchy about her cares and yells often. Pt noted to have a high temp upon touch. Pt temp axillary 102.8. Day RN called to physician for update. She received order for Tylenol 650mg supp. Pt alert, able to follow commands and assist with cares when informed of cares prior to started them. Pt able to answer simple questions. Pt is tachypnea with shallow breathing, noted SM at 15L, change to NRB. Noted coarse to BLL, Pt pulses are weak upon palpation BUE/BLE, BSAx4. Pt is irritable. GUTIERREZ DL PICC with Levophed running per titration orders current rate per IV flowsheet, dose decreased to 1mcg with stable BP bat 2044. Pt was given Morphine for [place]/Flacc discomfort et air hunger at 2056 et again at 2145 with visible decrease in RR et discomfort. Pt has L hand PIV SL. Noted left scale, dry patchy are to left knee size of tennis ball with small quarter size abrasion to top center, GER. Will cont to monitor. Recheck of temp noted decrease to 101.3,. Will cont to monitor. Pt is pulling at oxygen, will monitor closely d/t sat dropping quickly with removal of oxygen. RN nearby.
[2016-06-02] VITALS (66 sets, daily range): BP systolic 75–156; BP diastolic 46–95; PULSE 80–106; RESP 17–48; TEMP 97.5–100.7; O2SAT 80–100
[2016-06-02] MEDS: MORPHINE SULFATE 2 MG SYRINGE IV PRN ×4 (00:59→08:54)
[2016-06-02 01:11] LABS: HCT - HEMATOCRIT 29.1 % (36-46); HGB - HEMOGLOBIN 9.7 GM/DL (12-16); MEAN CORPUSCULAR HGB CONC(MCHC 33.3 GM/DL (31-37); MEAN CORPUSCULAR VOLUME 105.1 UM3 (80-100); MEAN PLATELET VOLUME 10.8 UM3 (9.4-12.4); RED BLOOD COUNT 2.77 M/MM3 (4.00-5.20); WBC - WHITE BLOOD COUNT 8.9 T/MM3 (4.5-11.0)
[2016-06-02 01:26] LABS: ALBUMIN 2.6 G/DL (3.5-5.0); ALBUMIN/GLOBULIN RATIO 0.9 RATIO (1.1-2.2); ALKALINE PHOSPHATASE 60 U/L (38-126); ALT (SGPT) 41 U/L (9-52); ANION GAP 12 MEQ/L (5-15); AST (SGOT) 35 U/L (14-36); BUN/CREATININE RATIO 16 RATIO (6-26); CALCIUM 8.3 MG/DL (8.4-10.2); CHLORIDE 114 MEQ/L (98-107); CO2 - CARBON DIOXIDE 22 MEQ/L (22-30); CREATININE 1.3 MG/DL (0.7-1.2); GLOMERULAR FILTRATION RATE 42; GLUCOSE 99 MG/DL (65-110); MAGNESIUM 1.8 MG/DL (1.6-2.3); POTASSIUM 3.6 MEQ/L (3.6-5); SODIUM 148 MEQ/L (134-144); TOTAL PROTEIN 5.4 G/DL (6.3-8.2)
[2016-06-02 01:39] LABS: VBG TOTAL CO2 22.2 MEQ/L
[2016-06-02 02:01] LABS: ANISOCYTOSIS 1+; BAND NEUTROPHILS # 1.4 T/MM3; HYPOCHROMASIA 1+; LYMPHOCYTES # (MANUAL) 0.4 T/MM3 (1-4.8); POIKILOCYTOSIS 1+; TOTAL CELLS COUNTED 100 %
[2016-06-02] MEDS: VANCOMYCIN 1,000 MG in NORMAL SALINE 250 ML IV SCH ×2 (02:59→21:37)
[2016-06-02] MEDS: CEFEPIME 1 G in NORMAL SALINE 100 ML IV SCH ×2 (04:46→10:13)
--- NOTE | 2016-06-02 08:31 | NUR ---
SUMMARY Provided update to TT Dr Castro regarding pt desatting etc 0210. Received orders. See chart. Pt responds well to Morphine IV by decreasing resp rate and increasing sats. Updated Dr. Castro again after labs drawn. Pt resting well on 15NRB sats 90s with intermittent awakenings. Pt at 0600 began to desat steadily. Pt turned to side, sat upright. Sats cont to decrease to 70s, called RT for breathing tx. Updated Dr Castro regarding pt issues with oxygenating this am. He ordered ABG and CXR. Updated that we were not able to get ABG as pt would start to get upset and hold her breath resulting in sats decreasing to 60s. Obtained order to place BiPap on pt. Pt able to calm slowly on Bipap and increase sat level. CXR obtained. Updated Dr. Hinojosa via phone this am about pt, no orders obtained, she will be by shortly to overlook pt. Pt sister at BS for event. Communicated with her regarding what we were doing as we were doing it. She is very appreciative of information but also scared and may require further reinforcement. Report given in SBAR at BS. All cares resigned.
[2016-06-02] MEDS: BUDESONIDE INH.SOLN. 0.5mg/2ml NEB AEROSOL SCH ×2 (08:58→19:31)
[2016-06-02] MEDS: ALBUTEROL/IPRATROPIUM INHAL. 2.5mg-0.5mg/3ml Neb. AEROSOL SCH ×4 (08:58→19:31)
[2016-06-02] MEDS ORDERED: FUROSEMIDE 20 MG/2 ML INJECTION IV ONE (09:15)
[2016-06-02] MEDS: ENOXAPARIN 60 MG/0.6 ML INJECTION SQ SCH ×2 (09:38→21:35)
[2016-06-02] MEDS: PIPERACILLIN/TAZOBACTAM 3.375 G in NORMAL SALINE 100 ML IV SCH ×2 (12:14→18:15)
--- NOTE | 2016-06-02 13:06 | NUR ---
VANCOMYCIN CONSULT: Vancomycin Trough = 15.4 mcg/ml. Today's SCr = 1.1 mg/dl. Will continue Vancomycin 1000 mg IV q18hrs. Will continue to monitor and make adjustments accordingly. Thank you.
[2016-06-02] MEDS ORDERED: PIPERACILLIN/TAZOBACTAM 4.5 G in NORMAL SALINE 100 ML IV SCH (15:00)
[2016-06-02] MEDS: ACETAMINOPHEN 650 MG SUPPOSITORY RECTALLY PRN (15:07)
[2016-06-02] MEDS: LEVOFLOXACIN 750 mg IVPB 750 MG in D5W 150 ML IV SCH (16:21)
--- NOTE | 2016-06-02 16:47 | NUR ---
Status Pt has been tolerating Bipap well this shift. Does get restless at times, but easily calmed. Pt does continue to de-sat with minimal activity or when bipap is temporarily removed, but pt is able to recover better than she did this morning. Pt's twin came to visit late morning and that did appear to cheer up pt. Sister has remained at bedside most of shift asking frequent questions. RN answers to best of ability. Frequent mouth care has been provided and pt also tolerates this well. Will continue to monitor.
--- NOTE | 2016-06-02 16:53 | PNPDOC ---
Subjective Date DATE: 06/02/16 TIME: 16:24 Subjective Avis was seen with her sister at bedside. Patient was anxious and did not respond to questions. Nursing reports that her oxygenation deteriorated overnight requiring initiation of BiPAP with FiO2 100%. Minimal activity results in oxygen levels dropping below 90%. Levophed has been weaned off overnight. Low-grade fever was again reported overnight. Objective Vital Signs Vital signs Vital Signs Date Time Temp Pulse Resp B/P Pulse Ox O2 Delivery O2 Flow Rate FiO2 06/02/16 16:00 98.8 93 26 90/55 97 Bi-pap 100 06/02/16 06:00 15.00 I/O 1797/579 urine output today 1330 mL EXAM General-anxious female, acknowledges my presence and waved to me at 1 point; does not respond verbally and meaningful manner HEENT-pupils equal and round, sclera anicteric, oral membranes dry but limited visualization due to BiPAP mask-exam Pulm-respirations nonlabored with BiPAP on, good airflow, anterior olivares clear , crackles at the bases bilaterally posteriorly Cardiac-regular rhythm, S1-S2, low-grade tachycardia intermittently Abd-soft, nontender, diminished bowel sounds Ext-without edema Neuro-moving extremities spontaneously Skin-erythematous plaque (approximately 8 cm) with scaling at periphery and superficial ulceration at the proximal aspect just below the left knee; no generalized rash Psych-anxious Height (Feet): 4 Height (Inches): 6.00 Weight (Kilograms): 61.100 Laboratory Laboratory Laboratory Tests 06/01/16 04:08 06/02/16 01:03 Liver enzymes unremarkable Laboratory Tests 06/01/16 04:08 06/02/16 01:03 Segs 79, bands 16, lymphocytes 5 Blood gas: 7.43/32/108/21, oxygen saturation 99% on nonrebreather mask Vancomycin trough 15.35 Microbiology Microbiology Microbiology Date/Time Source Procedure Growth Status 06/02/16 14:05 Sputum Suctioned Sputum Gram Stain Pending Resulted 06/02/16 14:05 Sputum Suctioned Sputum Sputum Culture - Preliminary CULTURE INITIATED - RESULTS PENDING Resulted Influenza A/B negative Blood cultures 2 negative after 72 hours Radiology Portable chest x-ray reviewed by myself demonstrating increasing infiltrates bilaterally lower lobes, probable vascular congestion. Assessment & Plan Problems: (1) Severe sepsis Status: Acute Assessment & Plan: Source pneumonia (2) Pneumonia Status: Acute Qualifiers: Laterality: right Lung location: lower lobe of lung (3) Acute respiratory failure with hypoxemia Status: Acute (4) Leukopenia Status: Resolved Qualifiers: Leukopenia type: unspecified Qualified Codes: D72.819 - Decreased white blood cell count, unspecified (5) Hypernatremia Status: Acute Assessment & Plan: POA (6) Hypotension Status: Acute Qualifiers: Hypotension type: unspecified hypotension type Qualified Codes: I95.9 - Hypotension, unspecified (7) Down's syndrome Status: Chronic (8) CHF due to valvular disease Status: Chronic Assessment & Plan: Tricuspid regurgitation, past AV canal repair (9) Stage III chronic kidney disease Status: Chronic (10) Hypothyroidism Status: Chronic (11) Dysphagia Status: Chronic Qualifiers: Dysphagia type: oropharyngeal phase Qualified Codes: R13.12 - Dysphagia, oropharyngeal phase (12) Obesity (BMI 30-39.9) Status: Chronic Assessment Deterioration of oxygenation overnight requiring initiation of BiPAP-patient is tolerated thus far with oxygenation above 90% at rest but dropping below 90% with any activity and maximal FiO2. Diuresis initiated as x-ray suggests some component of volume overload. Electrolytes being repeated this afternoon. Persistent hypernatremia noted. Creatinine up slightly, continue to assess. Patient at high risk for aspiration and felt to have aspiration pneumonia when hospitalized 2 years ago-cefepime switch to Zosyn to add anaerobic coverage with dose adjusted for renal function. Discussed with pharmacy. Continue Levaquin and vancomycin. Sputum culture, respiratory viral panel, Legionella, and strep antigen to be obtained. Known underlying valvular heart disease, check proBNP with morning labs. Lovenox (therapeutic dose empirically) and Pepcid prophylaxis. Critically ill, prognosis guarded at best. Plan/Intensity of Service Critically ill: time in 1033, time out 1101; time in 1622, time out 1649 DVT Prophylaxis: Lovenox Code Status Full Code Hospital Course Summary Disclaimer The hospital course summary below is not to be considered part of the above Progress Note. Hospital Course Summary 05/[address] patient in inpatient admission status at [facility] under the care of Dr. Genao. Anticipate greater than two midnights of care is needed. Initiate triple antimicrobial therapy consisting of cefepime 1 g IV q.6h. along with levofloxacin 750mg IV q.24h. and vancomycin per pharmacy protocol for empiric antimicrobial coverage of sepsis patient associated with healthcare. Continue with IV fluids. She has received fluid bolus appropriately. Will initiate 1/2 NS at 125mL/hr, watching for volume overload in light of her valvular heart disease. Lagunas catheter has been placed so we can monitor urine output closely. Recheck lactate. Initiate SCDs as well as Lovenox for DVT prophylaxis. As her D-dimer is elevated will initiate full-dose Lovenox. With her severe sepsis and respiratory status I was quite leery of having the patient undergoing CT PE protocol. Additionally, with her low blood pressures and stage III chronic kidney disease this could cause significant acute kidney injury. Will monitor the patient's symptoms, considering further CT as prudent. Will check Dopplers of lower extremities in light of elevated D-dimer to exclude DVT NPO until Speech can evaluate her swallow. She does have chronic dysphagia. Hold on ordering oral medications until swallow is cleared. Have Zofran available as needed for nausea. May have morphine and Ativan available as needed for anxiety, agitation, air hunger and pain. Recheck CBC, CMP and magnesium in a.m. The patient will be FULL CODE as per request. Patient's care will be returned to Dr. Zepeda at time of discharge from [facility]. 05/31 Resting in bed. Awake, alert but non verbal (baseline). Needed several IV boluses overnight as BP low. Norepinephrine started this am. Urine output decreased: I>O. CXR with increased consolidation. O2 saturations maintaining on 6L with mask. Sodium decreased to 147. Creatinine 1.1. WBC 3.3 with shift. Continue with levofloxacin, cefepime, and vancomycin for pulmonary coverage. Continue norepinephrine for BP support - target MAP 65 or above. Decrease 1/2NS to 100 cc/hr - valvular heart disease places increased concern for volume overload. Continue Lovenox for anticoagulation - LE US without evidence of clot. Possible CTA lungs tomorrow if pt status improves. Worry contrast dye at this time would be detrimental to renal function. Continue supplemental O2. Will add DuoNeb and Budesonide for respiratory support. Speech to check on swallow function. Lagunas to DD to monitor urine output. Recheck BMP, CBC, and magnesium in am due to severe sepsis. Pt critically ill. ICU care needs paramount. 06/01 Awake and alert. Uncomfortable-complaining that Lagunas bothersome. Resp rate and O2 need increases as pt irritated. Did receive MS overnight. IVF stopped by Tele Hospitalist overnight do to worry of volume. Minimal verbal response - yes /no answers. ROS limited secondary to pt's Down's. IVF stopped due to concern for volume overload. Monitor BP. Continue with levofloxacin, cefepime, and vancomycin for pulmonary coverage. Continue norepinephrine for BP support - target MAP 65 or above. Wean as able. Pt does tend to run lower BP in outpatient setting. Continue Lovenox for anticoagulation With continued need for norepinephrine, worry about having patient off unit. Worry contrast dye at this time would be detrimental to renal function. Continue supplemental O2 - weaning as able. Using mask as pt not tolerating NC due to discomfort of canula. Continue DuoNeb and Budesonide for respiratory support. Speech to check on swallow function. Lagunas removed due to pt discomfort with Lagunas. Recheck CMP, CBC, and magnesium in am due to severe sepsis. Pt critically ill. ICU care needs paramount. 06/02/16 Deterioration of oxygenation overnight requiring initiation of BiPAP-patient is tolerated thus far with oxygenation above 90% at rest but dropping below 90% with any activity and maximal FiO2. Diuresis initiated as x-ray suggests some component of volume overload. Electrolytes being repeated this afternoon. Persistent hypernatremia noted. Creatinine up slightly, continue to assess. Patient at high risk for aspiration and felt to have aspiration pneumonia when hospitalized 2 years ago-cefepime switch to Zosyn to add anaerobic coverage with dose adjusted for renal function. Discussed with pharmacy. Continue Levaquin and vancomycin. Sputum culture, respiratory viral panel, Legionella, and strep antigen to be obtained. Known underlying valvular heart disease, check proBNP with morning labs. Critically ill, prognosis guarded at best. LENNY DAY MD Jun 02, 2016 16:32
[2016-06-02 17:19] LABS: ANION GAP 12 MEQ/L (5-15); BUN/CREATININE RATIO 19 RATIO (6-26); CALCIUM 8.5 MG/DL (8.4-10.2); CHLORIDE 114 MEQ/L (98-107); CO2 - CARBON DIOXIDE 25 MEQ/L (22-30); CREATININE 1.5 MG/DL (0.7-1.2); GLOMERULAR FILTRATION RATE 35; GLUCOSE 96 MG/DL (65-110); POTASSIUM 3.4 MEQ/L (3.6-5); SODIUM 151 MEQ/L (134-144)
--- NOTE | 2016-06-02 21:27 | DI ---
Indication: ITS.REASON: shortness of air PROCEDURE: CHEST 1 VIEW: Encounter: Initial Comparison: May 31, 2016 Findings: Overlying metallic densities causing artifact and obscuring portions of the right chest. New right PICC line in place with the tip projecting over the expected cavoatrial junction. Worsening bilateral perihilar and mid lung infiltrates with small pleural effusions. No pneumothorax. Heart size is obscured by the airspace process. Prior CABG. Impression: Worsening bilateral infiltrates probably representing severe pulmonary edema. There is a preliminary report by virtual radiologic. .
[2016-06-02] MEDS: POTASSIUM CHLORIDE 10 MEQ in WATER FOR INJECTION 100 ML IV SCH ×2 (21:36→23:14)
[2016-06-02 21:49] LABS: MRSA SPECIMEN NASAL
[2016-06-02] MEDS ORDERED: NORMAL SALINE 500 ML IV PRN (22:15)
[2016-06-02 23:07] LABS: MRSA SCREEN BY PCR NEGATIVE (NEGATIVE)
[2016-06-03] VITALS (124 sets, daily range): BP systolic 47–118; BP diastolic 30–70; PULSE 25–186; RESP 0–52; TEMP 97.7–98.3; O2SAT 19–99
[2016-06-03] MEDS: PIPERACILLIN/TAZOBACTAM 3.375 G in NORMAL SALINE 100 ML IV SCH ×3 (00:13→12:47)
--- NOTE | 2016-06-03 00:36 | NUR ---
Ativan Pt has been restless/calling out. Pt repositioned. Pt has been breathing 30-40 breaths per min. O2 sats now mid 80's on bipap at 100% FiO2. PRN Ativan admin for pt comfort/resp issues.
--- NOTE | 2016-06-03 01:08 | NUR ---
Respiratory Pt assisted with position change around 0015. Oral cares admin. Pt O2 sats while briefly off bipap quickly drop to 70's. Once placed back onto bipap (100% FiO2), pt O2 sat slowly trended to 80's. Pt O2 sats occasionally up to 91-92%, but would then go back down to 80's. PRN ativan admin at 0036 and pt has rested quietly since then. RT came and adjusted bipap settings. O2 sats slowly came up to 90's. Discussed case with Dr Jean Baptiste including above information, code status, BP of 81/51. Relayed pt had been on norepinephrine 24 hours ago. Order rec'd for VBG and restart norepi gtt. Orders placed.
[2016-06-03] MEDS ORDERED: NOREPINEPHRINE IV SCH (01:30)
[2016-06-03] MEDS ORDERED: NORMAL SALINE IV SCH ×3 (01:30→17:00)
[2016-06-03 01:41] LABS: VBG TOTAL CO2 25.1 MEQ/L
--- NOTE | 2016-06-03 01:43 | NUR ---
Levophed Levophed gtt started due to blood pressures of 81/51. Levophed started at 1 mcg/min.
[2016-06-03 01:50] LABS: HCT - HEMATOCRIT 29.4 % (36-46); HGB - HEMOGLOBIN 9.7 GM/DL (12-16); MEAN CORPUSCULAR HGB 34.8 UUG (26-34); MEAN CORPUSCULAR VOLUME 105.4 UM3 (80-100); MEAN PLATELET VOLUME 11.6 UM3 (9.4-12.4); RED BLOOD COUNT 2.79 M/MM3 (4.00-5.20); WBC - WHITE BLOOD COUNT 10.7 T/MM3 (4.5-11.0)
[2016-06-03 01:57] LABS: ANION GAP 15 MEQ/L (5-15); BUN/CREATININE RATIO 20 RATIO (6-26); CALCIUM 8.4 MG/DL (8.4-10.2); CHLORIDE 114 MEQ/L (98-107); CO2 - CARBON DIOXIDE 23 MEQ/L (22-30); CREATININE 1.6 MG/DL (0.7-1.2); GLOMERULAR FILTRATION RATE 33; GLUCOSE 101 MG/DL (65-110); MAGNESIUM 1.9 MG/DL (1.6-2.3); POTASSIUM 3.9 MEQ/L (3.6-5); SODIUM 152 MEQ/L (134-144)
[2016-06-03] MEDS: MORPHINE SULFATE 2 MG SYRINGE IV PRN ×5 (02:16→18:59)
--- NOTE | 2016-06-03 02:16 | NUR ---
MS/Ativan reassess/O2 Pt respirations have been 20's to 30's after ativan admin, but pt is getting restless and hollering. Pt has been repositioned a couple of times in last 20 minutes. Discussed with pt sister and PRN MS admin for pt comfort/possible pain. Pt O2 sats have been 90's, except in 80's with cares. Discussed pt O2 issues with pt sister and of possible intubation if O2 sats don't stay in 90's. Educated pt sister on sedation for intubation and while on ventilator if it is needed. Will continue to monitor.
--- NOTE | 2016-06-03 02:46 | NUR ---
MS reassess Pt has been resting quietly and not hollering/moving about after MS admin. Will continue to monitor.
[2016-06-03 02:48] LABS: PROBNP 20800 PG/ML (0-175)
--- NOTE | 2016-06-03 02:48 | NUR ---
Levophed reassess MAP has been >65 since Levophed started at 1 mcg/min. Will continue to monitor.
[2016-06-03 05:35] LABS: BAND NEUTROPHILS # 0.9 T/MM3; LYMPHOCYTES # (MANUAL) 0.3 T/MM3 (1-4.8); NEUTROPHILS #(MANUAL)-ABSOLUTE 9.5 T/MM3 (1.8-7.7); TOTAL CELLS COUNTED 100 %
[2016-06-03 05:36] LABS: HYPOCHROMASIA 1+
[2016-06-03] MEDS: BUDESONIDE INH.SOLN. 0.5mg/2ml NEB AEROSOL SCH (07:26)
[2016-06-03] MEDS: ALBUTEROL/IPRATROPIUM INHAL. 2.5mg-0.5mg/3ml Neb. AEROSOL SCH ×2 (07:26→13:46)
--- NOTE | 2016-06-03 07:53 | NUR ---
Status Pt slept fitfully during night. Pt would holler/cry out periodically during night. Pt was repositioned often during night for comfort. PRN Ativan and MS admin for comfort/air hunger during night. Pt on 100% FiO2 on bipap during night. Pt o2 sats would drop quickly to 70's/80's when cares were performed or pt would awaken and holler out. O2 sats would then go back up slowly to 90's when pt would settle down.Levophed on a 1mcg/min since 142 to keep MAP 65 or greater. Bed alarm on, will continue to monitor.
[2016-06-03] MEDS ORDERED: FAMOTIDINE 20 MG in NORMAL SALINE 50 ML IV SCH (09:00)
[2016-06-03] MEDS: ENOXAPARIN 60 MG/0.6 ML INJECTION SQ SCH (09:06)
[2016-06-03] MEDS: ALBUTEROL/IPRATROPIUM INHAL. 2.5mg-0.5mg/3ml Neb. AEROSOL PRN (09:41)
[2016-06-03] MEDS ORDERED: FUROSEMIDE 20 MG/2 ML INJECTION IV ONE (10:30)
[2016-06-03] MEDS ORDERED: PROPOFOL 1000mg 100 ML IV SCH (12:45)
[2016-06-03] MEDS ORDERED: NS IV SCH (13:45)
[2016-06-03] MEDS ORDERED: DILTIAZEM IV SCH (13:45)
[2016-06-03] MEDS ORDERED: ETOMIDATE 20 MG/10 ML IV ONE (14:14)
[2016-06-03] MEDS ORDERED: MIDAZOLAM 2mg/2ml INJECTION IV ONE (14:14)
[2016-06-03] MEDS: VANCOMYCIN 1,000 MG in NORMAL SALINE 250 ML IV SCH (14:27)
--- NOTE | 2016-06-03 14:50 | NUR ---
Event At 1055 this RN and Celestina RN were repositioning pt. Pt's HR showed SVT with rate greater than [address] Hinojosa was on unit and brought into room. RN also called [employer], Josafat Pettit RN, Kiran PETERSON, Dr. Conrad, Ezio RT and Fernando RT 1101: 6 mg adenosine given. No change in HR 1103: 12 mg adenosine. 1105: Dr. Hinojosa contacted Dr. Perez via phone for consult. 1109: 10 mg cardizem 1116: 0.5 mg Digoxin Pt continues to have fast HR, but breathing ok. O2 saturations in 70-80%. Pt responds to touch pulling arms back. BP currently on right leg, but manual taken on left upper arm. BP then switched to left upper arm. 1118: ABG attempt by RT- right femoral 1120: ABG attempt by RT- right radial 1124: HR converted to NSR rate of 75. 1125: Dr. Hinojosa visited with family outside room discussing intubation. 1131: 18 mg Etomidate given 1134: 90 mg Succinylcholine given. (Medication orders calculated by Kiran PETERSON, double checked with Celestina RN and confirmed with Dr. Conrad) 1135: First and only intubation attempt. Successful. [place] scope used. Performed by Dr. Conrad. settings: Inspiratory pressure- 20, PEEP- 10, FiO2- 100%. 1140: OG inserted. 1145: X-ray taken at bedside for confirmation. 1158: 2 mg Versed given, soft limb restraints applied. Family outside room during whole event. Each change, Dr. Hinojosa stepped out to visit with them.
--- NOTE | 2016-06-03 15:25 | PNPDOC ---
Subjective Date DATE: 06/03/16 TIME: 14:47 Subjective Luz Elena's reported that the patient was slightly more alert yesterday evening although less evident this morning. She was able to look at pictures and seem to recognize family members. Nursing reports decreased cough. Blood pressure dropped to 80/46 overnight resulting in resumption of 1 g Levophed. Nursing describes minimal sleep throughout the night and need for morphine intermittently to help with agitation and prevent pulling at BiPAP mask. Shortly after Luz Elena was seen this morning I was called back to the room urgently for narrow complex tachycardia and ultimate intubation. Objective Vital Signs Vital signs Vital Signs Date Time Temp Pulse Resp B/P Pulse Ox O2 Delivery O2 Flow Rate FiO2 06/03/16 13:47 80 06/03/16 13:46 29 99 06/03/16 13:00 100 06/03/16 12:05 84/52 Mechanical Ventilator 06/03/16 08:00 97.7 06/02/16 06:00 15.00 I/O 970/1561-yesterday 11,896/4551-cumulative(+ 7345) Admission weight 59.7 kg, current weight 60.7 kg EXAM General-confused female, BiPAP on with air leak present HEENT-sclera anicteric, dry oral membranes with small amount of dried blood on the hard palate Lungs-respirations are mildly labored, crackles are present at the bases laterally Cardiac-regular cardiac rhythm, S1-S2 on initial examination; subsequently rapid irregular tachycardia Abd-soft, diminished bowel sounds Ext-no peripheral edema Neuro-spontaneous movement of all extremities, reaches for BiPAP mask Height (Feet): 4 Height (Inches): 6.00 Weight (Kilograms): 60.700 Laboratory Laboratory Laboratory Tests 06/02/16 01:03 06/02/16 16:55 06/03/16 01:36 Magnesium 1.9 Laboratory Tests 06/02/16 01:03 06/03/16 01:36 Segs 89, bands 8, lymphocytes 3 Venous blood gas at 1:30 AM-7.30/48/32/24 with oxygen saturation 54%, on BiPAP FiO2 100% ABG 1 hour post intubation 7.33/43/59/23, 88% with FiO2 100% and PEEP 10 pro-BNP 20,800 Microbiology Microbiology Microbiology Date/Time Source Procedure Growth Status 06/02/16 14:05 Sputum Suctioned Sputum Gram Stain - moderate epithelial cells, many WBCs, few G+cocci in prs, few G-cocci Resulted 06/02/16 14:05 Sputum Suctioned Sputum Sputum Culture - Preliminary CULTURE INITIATED - RESULTS PENDING Resulted 06/02/16 09:25 Urine Legionella Urinary Antigen -negative Complete 06/02/16 09:25 Urine Streptococcus pneumoniae Antigen-negative Complete Blood cultures 2 drawn 05/30 negative to date Respiratory viral panel 06/02-negative MRSA swab 06/02-negative Radiology Portable chest x-ray with diffuse bilateral internal filtrates consistent with CHF/pulmonary edema by my review; postintubation film unchanged with ET tube about 2 cm above keith Assessment & Plan Problems: (1) Acute respiratory failure with hypoxemia Status: Acute (2) Atrial fibrillation with RVR Status: Acute Assessment & Plan: Onset 06/03-converted after diltiazem 10 mg IV followed by digoxin 0.5 mg IV 1 (3) Pulmonary edema Status: Acute Qualifiers: Chronicity: acute Qualified Codes: J81.0 - Acute pulmonary edema (4) Severe sepsis Status: Acute Assessment & Plan: Source pneumonia; pressors required for several days-septic shock (5) Pneumonia Status: Acute Qualifiers: Laterality: right Lung location: lower lobe of lung (6) Leukopenia Status: Resolved Qualifiers: Leukopenia type: unspecified Qualified Codes: D72.819 - Decreased white blood cell count, unspecified (7) Hypernatremia Status: Acute Assessment & Plan: POA (8) Hypotension Status: Acute Qualifiers: Hypotension type: unspecified hypotension type Qualified Codes: I95.9 - Hypotension, unspecified (9) Down's syndrome Status: Chronic (10) CHF due to valvular disease Status: Chronic Assessment & Plan: Mitral regurgitation, past AV canal repair (11) Stage III chronic kidney disease Status: Chronic (12) Hypothyroidism Status: Chronic Assessment & Plan: TSH 2.78 on 06/03 (13) Dysphagia Status: Chronic Qualifiers: Dysphagia type: oropharyngeal phase Qualified Codes: R13.12 - Dysphagia, oropharyngeal phase (14) Obesity (BMI 30-39.9) Status: Chronic Assessment Remains critically ill-acute deterioration in cardiac rhythm this morning culminated in intubation urgently. Minimal diuresis overnight with initial dose of Lasix, persistent pulmonary edema and marginal oxygenation with evidence of fatiguing and slight hypercarbia on blood gases morning. Just before 11 AM patient developed narrow complex tachyarrhythmia with heart rates around 200. Rhythm slowed with adenosine demonstrating underlying irregular rhythm consistent with A. fib/flutter. Blood pressure was borderline at the time but a trial dose of diltiazem 10 mg was given with minimal slowing. Dr. Perez was consulted by phone and suggested digoxin trial. 0.5 mg milligram of IV digoxin was administered and approximate 5 minutes later rhythm converted to sinus and has remained sinus thus far. Blood pressure remained borderline throughout with systolics typically in the 80s-90s which are reported by Dr. Perez to be near baseline for the patient. Patient was urgently intubated and has continued to require an FiO2 of 100% with borderline oxygenation. Decision was subsequently made to transfer to higher level of care due to complexity of illness. Transferring to [facility] discussed with Dr. Lara and Dr. Anais Perez. Chest x-ray consistent with pulmonary edema, Lasix given this morning with approximately 1 L of urine out thus far. Patient is currently on Zosyn and Levaquin for presenting pneumonia, no organism identified. Vancomycin initiated yesterday but have subsequently discontinued as MRSA negative and aspiration pneumonia suspected. Lovenox (therapeutic dose empirically, venous Dopplers negative on admission) and Pepcid prophylaxis. Critically ill, prognosis guarded at best. Plan/Intensity of Service Critically ill: time in-1024, time out-1045; time in-1059, time out-1144; time in-1432, time out-1520 DVT Prophylaxis: Lovenox Code Status Full Code Hospital Course Summary Disclaimer The hospital course summary below is not to be considered part of the above Progress Note. Hospital Course Summary 05/[address] patient in inpatient admission status at [facility] under the care of Dr. Genao. Anticipate greater than two midnights of care is needed. Initiate triple antimicrobial therapy consisting of cefepime 1 g IV q.6h. along with levofloxacin 750mg IV q.24h. and vancomycin per pharmacy protocol for empiric antimicrobial coverage of sepsis patient associated with healthcare. Continue with IV fluids. She has received fluid bolus appropriately. Will initiate 1/2 NS at 125mL/hr, watching for volume overload in light of her valvular heart disease. [place] catheter has been placed so we can monitor urine output closely. Recheck lactate. Initiate SCDs as well as Lovenox for DVT prophylaxis. As her D-dimer is elevated will initiate full-dose Lovenox. With her severe sepsis and respiratory status I was quite leery of having the patient undergoing CT PE protocol. Additionally, with her low blood pressures and stage III chronic kidney disease this could cause significant acute kidney injury. Will monitor the patient's symptoms, considering further CT as prudent. Will check Dopplers of lower extremities in light of elevated D-dimer to exclude DVT NPO until Speech can evaluate her swallow. She does have chronic dysphagia. Hold on ordering oral medications until swallow is cleared. Have Zofran available as needed for nausea. May have morphine and Ativan available as needed for anxiety, agitation, air hunger and pain. Recheck CBC, CMP and magnesium in a.m. The patient will be FULL CODE as per request. Patient's care will be returned to Dr. Zepeda at time of discharge from [facility]. 05/31 Resting in bed. Awake, alert but non verbal (baseline). Needed several IV boluses overnight as BP low. Norepinephrine started this am. Urine output decreased: I>O. CXR with increased consolidation. O2 saturations maintaining on 6L with mask. Sodium decreased to 147. Creatinine 1.1. WBC 3.3 with shift. Continue with levofloxacin, cefepime, and vancomycin for pulmonary coverage. Continue norepinephrine for BP support - target MAP 65 or above. Decrease 1/2NS to 100 cc/hr - valvular heart disease places increased concern for volume overload. Continue Lovenox for anticoagulation - LE US without evidence of clot. Possible CTA lungs tomorrow if pt status improves. Worry contrast dye at this time would be detrimental to renal function. Continue supplemental O2. Will add DuoNeb and Budesonide for respiratory support. Speech to check on swallow function. Lagunas to DD to monitor urine output. Recheck BMP, CBC, and magnesium in am due to severe sepsis. Pt critically ill. ICU care needs paramount. 06/01 Awake and alert. Uncomfortable-complaining that Lagunas bothersome. Resp rate and O2 need increases as pt irritated. Did receive MS overnight. IVF stopped by Tele Hospitalist overnight do to worry of volume. Minimal verbal response - yes /no answers. ROS limited secondary to pt's Down's. IVF stopped due to concern for volume overload. Monitor BP. Continue with levofloxacin, cefepime, and vancomycin for pulmonary coverage. Continue norepinephrine for BP support - target MAP 65 or above. Wean as able. Pt does tend to run lower BP in outpatient setting. Continue Lovenox for anticoagulation With continued need for norepinephrine, worry about having patient off unit. Worry contrast dye at this time would be detrimental to renal function. Continue supplemental O2 - weaning as able. Using mask as pt not tolerating NC due to discomfort of canula. Continue DuoNeb and Budesonide for respiratory support. Speech to check on swallow function. Lagunas removed due to pt discomfort with Lagunas. Recheck CMP, CBC, and magnesium in am due to severe sepsis. Pt critically ill. ICU care needs paramount. 06/02/16 Deterioration of oxygenation overnight requiring initiation of BiPAP-patient is tolerated thus far with oxygenation above 90% at rest but dropping below 90% with any activity and maximal FiO2. Diuresis initiated as x-ray suggests some component of volume overload. Electrolytes being repeated this afternoon. Persistent hypernatremia noted. Creatinine up slightly, continue to assess. Patient at high risk for aspiration and felt to have aspiration pneumonia when hospitalized 2 years ago-cefepime switch to Zosyn to add anaerobic coverage with dose adjusted for renal function. Discussed with pharmacy. Continue Levaquin and vancomycin. Sputum culture, respiratory viral panel, Legionella, and strep antigen to be obtained. Known underlying valvular heart disease, check proBNP with morning labs. Critically ill, prognosis guarded at best. 06/03/16 Remains critically ill-acute deterioration in cardiac rhythm this morning culminated in intubation urgently. Minimal diuresis overnight with initial dose of Lasix, persistent pulmonary edema and marginal oxygenation with evidence of fatiguing and slight hypercarbia on blood gases morning. Just before 11 AM patient developed narrow complex tachyarrhythmia with heart rates around 200. Rhythm slowed with adenosine demonstrating underlying irregular rhythm consistent with A. fib/flutter. Blood pressure was borderline at the time but a trial dose of diltiazem 10 mg was given with minimal slowing. Dr. Perez was consulted by phone and suggested digoxin trial. 0.5 milligram of IV digoxin was administered and approximate 5 minutes later rhythm converted to sinus and has remained sinus thus far. Blood pressure remained borderline throughout with systolics typically in the 80s-90s which are reported by Dr. Perez to be near baseline for the patient. Patient was urgently intubated and has continued to require an FiO2 of 100% with borderline oxygenation. Decision was subsequently made to transfer to higher level of care due to complexity of illness. Transferring to [facility] discussed with Dr. Lara and Dr. Anais Perez. Chest x-ray consistent with pulmonary edema, Lasix given this morning with approximately 1 L of urine out thus far. Patient is currently on Zosyn and Levaquin for presenting pneumonia, no organism identified. Vancomycin initiated yesterday but have subsequently discontinued as MRSA negative and aspiration pneumonia suspected. Lovenox (therapeutic dose empirically, venous Dopplers negative on admission) and Pepcid prophylaxis. Critically ill, prognosis guarded at best. LENNY DAY MD Jun 03, 2016 14:56
--- NOTE | 2016-06-03 15:33 | NUR ---
report report called to Roxann FAUSTIN at [facility]. Addendum: 06/03/16 at 2037 by WINDY AGUILAR RN at 1900 update provided to Roxann that pt would not be making the transfer.
[2016-06-03] MEDS ORDERED: BUDE0.5A AEROSOL (15:34)
[2016-06-03] MEDS ORDERED: PIPE3.376 IV (15:34)
[2016-06-03] MEDS ORDERED: IPRA3AMP AEROSOL ×2 (15:34)
[2016-06-03] MEDS ORDERED: ACET650S9 RECTALLY (15:34)
[2016-06-03] MEDS ORDERED: ENOX60DI SQ (15:34)
[2016-06-03] MEDS ORDERED: METH125V14 IV (15:34)
[2016-06-03] MEDS ORDERED: [UNRECOGNIZED DRUG - CODE] IV ×2 (15:34)
[2016-06-03] MEDS ORDERED: [UNRECOGNIZED DRUG - CODE] IV (15:34)
[2016-06-03] MEDS ORDERED: ADENOSINE 12mg/4ml INJECTION vl IV ONE (16:00)
[2016-06-03] MEDS ORDERED: AMIODARONE 150 MG in NORMAL SALINE 100 ML IV ONE ×2 (16:30→16:45)
[2016-06-03] MEDS ORDERED: AMIODARONE 900 MG in NORMAL SALINE 500 ML IV SCH ×2 (16:30→16:45)
[2016-06-03] MEDS ORDERED: VASOPRESSIN IV SCH ×2 (16:45→17:00)
[2016-06-03] MEDS ORDERED: DIGOXIN 500mcg/2ml INJECTION IV SCH (17:15)
--- NOTE | 2016-06-03 17:17 | DI ---
Indication: ITS.REASON: intubation, ET placement PROCEDURE: CHEST 1 VIEW: Encounter: Initial Comparison: June 03, 2016 at 0651 Findings: Endotracheal tube in place with the tip projecting 3 cm above the keith. New nasogastric tube appears appropriately positioned with the proximal side port projecting over the body of the stomach. Right PICC line remains in place. Severe bilateral airspace disease is again seen throughout both lung olivares without significant change. Small bilateral effusions. No pneumothorax. Heart size and mediastinal contours are stable. Impression: 1. Tubes and lines as above. 2. Diffuse bilateral airspace disease could be due to severe pulmonary edema, pulmonary hemorrhage or severe infection/ARDS. There is a preliminary report by virtual radiologic. .
[2016-06-03 17:37] LABS: ANION GAP 16 MEQ/L (5-15); BUN/CREATININE RATIO 24 RATIO (6-26); CALCIUM 8.6 MG/DL (8.4-10.2); CHLORIDE 116 MEQ/L (98-107); CO2 - CARBON DIOXIDE 24 MEQ/L (22-30); CREATININE 1.9 MG/DL (0.7-1.2); GLOMERULAR FILTRATION RATE 27; GLUCOSE 124 MG/DL (65-110); POTASSIUM 3.5 MEQ/L (3.6-5); SODIUM 156 MEQ/L (134-144)
[2016-06-03] MEDS ORDERED: ATROPINE 1mg/10ml Syringe IV ONE (19:32)
--- NOTE | 2016-06-03 19:33 | NUR ---
Pt pronounced at this time by Dr Hinojosa. This RN and Dr Hinojosa auscultates for heart tones, none noted. Family present at bedside. No respirations noted.
--- NOTE | 2016-06-03 19:46 | NUR ---
Update/ Second event Pt had been tolerating intubation well, minimal sedation was used. Soft limb restraints in place per orders. family had made decision to transfer pt to [place] for further care. This RN called EMS who arrived at [facility]. At time of arrival, pt had flipped back into an SVT with a rate of 160s. 1609: Adenosine 6mg 1613: 0.25 mg Digoxin given 1635: 250 NS bolus given for continued low pressures., amio bolus 1643: IV started in LW by EMS in 1 attempt 1652: Amio gtt started 4 EMS team members remained in room for 1 hour before leaving to respond to other calls. Number was given to contact them when pt ready for transport. 1723:Vasopressin started. Rate confirmed with radiology practitioner assistant pharmacy. 1738: 200 cc fluid bolus given 1757: Vent began alarming low tidal volume-check connections. This RN called RT immediately. RT checked connections: RT was unable to suction or get air to move. 1800 RT pulled ET tube per Dr. Hinojosa. End of tube had large mucous plug. RT bagging pt. Pulse down to 30s. 1805: Code Blue called 1811: Atropine Given 1813: Dr. Ospina ED Physician ran code 1814: Portable CXR 1815: HR maintained at 140 1817: BP 71/59 1820: Dr. Hinojosa stepped out of room to visit with family 1828: Dr. Ospina checked out to Dr. Hinojosa 1830: Lab taking EKG, BP 118/70 HR 120, bagging 1833: Switched back to Bipap at 100% 1836: Levophed increased to 1 mcg 1853: Family made decision to stop treatment. Dr Hinojosa notified. Pt made comfortable. 1932: Time of . Dr. Hinojosa at bedside Team members present: Veronica Bey RN, Celestina Henry RN, [facility] Hospitaldriver supervisor, Dr. Conrad, Dr. Ospina, Dr. Hinojosa, Fernando Ledezma RT, Gonzalo Cruz RT, Sylvie RN, Paula RN, Noemy RN, Sadie Caldwell RT, poonam Addendum: 06/03/16 at 2023 by VERONICA BEY RN team members continued: Yoni lynne. Family left bedside at 2014. [facility] home contacted. Family took all personal belongings.
--- NOTE | 2016-06-03 21:23 | NUR ---
[facility] here to pick out hand body at this time.
--- NOTE | 2016-06-03 22:41 | DSPDOC ---
General Date Date DATE: 06/03/16 TIME: 22:29 Attending Physician Franklyn Genao MD Admitting Physician Franklyn Genao MD Consulting Physician Admitting Diagnosis sepsis Discharge Diagnosis Septic shock Acute hypoxic respiratory failure Atrial fibrillation with rapid ventricular response Pulmonary edema Right lower lobe pneumonia Leukopenia, present on admission Hypernatremia Congestive heart failure due to valvular heart disease Chronic kidney disease, stage III Down syndrome Laboratory Laboratory Tests Test 06/02/16 16:55 06/02/16 21:44 06/03/16 01:36 06/03/16 13:15 Turbidity < 20 (0-20) < 20 (0-20) Sodium Level 151MEQ/L (134-144) 152MEQ/L (134-144) Potassium Level 3.4MEQ/L (3.6-5) 3.9MEQ/L (3.6-5) Chloride Level 114MEQ/L (98-107) 114MEQ/L (98-107) Carbon Dioxide Level 25MEQ/L (22-30) 23MEQ/L (22-30) Anion Gap 12MEQ/L (5-15) 15MEQ/L (5-15) Blood Urea Nitrogen 29.0MG/DL (7-17) 32.0MG/DL (7-17) Creatinine 1.5MG/DL (0.7-1.2) 1.6MG/DL (0.7-1.2) Glomerular Filtration Rate Calc 35 33 BUN/Creatinine Ratio 19RATIO (6-26) 20RATIO (6-26) Glucose Level 96MG/DL (65-110) 101MG/DL (65-110) Calculated Osmolality 296MOSM/KG (261-280) 299MOSM/KG (261-280) Calcium Level 8.5MG/DL (8.4-10.2) 8.4MG/DL (8.4-10.2) Icterus Index < 2 (0-7) < 2 (0-7) Chemistry Specimen Hemolysis < 15 (0-25) < 15 (0-25) Adenovirus (PCR) Negative (NEGATIVE) Bordetella parapertussis DNA (PCR) Negative (NEGATIVE) Chlamydia pneumoniae DNA (PCR) Negative (NEGATIVE) Coronavirus Type OC43 (PCR) Negative (NEGATIVE) Coronavirus Type HKU1 (PCR) Negative (NEGATIVE) Coronavirus Type 229E (PCR) Negative (NEGATIVE) Coronavirus Type NL63 (PCR) Negative (NEGATIVE) Human Metapneumovirus (PCR) Negative (NEGATIVE) Influenza Virus Type A (PCR) Negative (NEGATIVE) Influenza Virus Type B (PCR) Negative (NEGATIVE) Mycoplasma pneumoniae (PCR) Negative (NEGATIVE) Parainfluenza Type 1 (PCR) Negative (NEGATIVE) Parainfluenza Type 2 (PCR) Negative (NEGATIVE) Parainfluenza Type 3 (PCR) Negative (NEGATIVE) Parainfluenza Type 4 (PCR) Negative (NEGATIVE) Respiratory Syncytial Virus (PCR) Negative (NEGATIVE) Enterovirus/Rhinovirus (PCR) Negative (NEGATIVE) MRSA Specimen Source Nasal Methicillin-Resist S.aureus DNA PCR Negative (NEGATIVE) White Blood Count 10.7T/MM3 (4.5-11.0) Red Blood Count 2.79M/MM3 (4.00-5.20) Hemoglobin 9.7GM/DL (12-16) Hematocrit 29.4% (36-46) Mean Corpuscular Volume 105.4UM3 (80-100) Mean Corpuscular Hemoglobin 34.8UUG (26-34) Mean Corpuscular Hemoglobin Concent 33.0GM/DL (31-37) RDW Standard Deviation 56.6FL (36.9-50.2) Platelet Count 115T/MM3 (130-400) Mean Platelet Volume 11.6UM3 (9.4-12.4) Immature Granulocyte % (Auto) % (0.0-0.5) Neutrophils (%) (Auto) % (33-66) Lymphocytes (%) (Auto) % (23-45) Monocytes (%) (Auto) % (0-9.0) Eosinophils (%) (Auto) % (0-4) Basophils (%) (Auto) % (0-2) Absolute Immature Granulocyte (auto T/MM3 (0.00-0.03) Absolute Neutrophils (auto) T/MM3 (1.8-7.7) Absolute Lymphocytes (auto) T/MM3 (1-4.8) Absolute Monocytes (auto) T/MM3 (0-0.8) Absolute Eosinophils (auto) T/MM3 (0-0.5) Absolute Basophils (auto) T/MM3 (0-0.2) Neutrophils % (Manual) 89.0% (33-66) Band Neutrophils % 8.0% (0-6) Lymphocytes % (Manual) 3.0% (23-45) Absolute Neutrophils (Manual) 9.5T/MM3 (1.8-7.7) Band Neutrophils # 0.9T/MM3 Lymphocytes # (Manual) 0.3T/MM3 (1-4.8) Hypochromasia 1+ Red Cell Morphology Comment Abnormal Venous Blood pH 7.300 (7.31-7.41) Venous Blood Partial Pressure CO2 48MMHG (40-52) Venous Blood Partial Pressure O2 32MMHG (40-52) Venous Blood HCO3 24MEQ/L (22-26) Venous Blood Total Carbon Dioxide 25.1MEQ/L Venous Blood Oxygen Saturation 54.0% Venous Blood Base Excess -3.1MMOL/L (-2.0-2.0) Oxygen Delivery Method (LAB) Bpap, % Venturi mask, % Blood Gas Oxygen Liter Flow Blood Gas Oxygen Percent Given 100 100 Magnesium Level 1.9MG/DL (1.6-2.3) WN-Lgf-Q-Type Natriuretic Peptide 29848YX/ML (0-175) Procalcitonin 2.78NG/ML Arterial Blood pH 7.330 (7.350-7.450) Arterial Blood Partial Pressure CO2 43MMHG (34-45) Arterial Blood pO2 at Patient Temp 59MMHG (80-100) Arterial Blood HCO3 23MEQ/L (22-26) Arterial Blood Total CO2 24.0MEQ/L (23-27) Arterial Blood Oxygen Saturation 88.0% (95.0-98.0) Arterial Blood Base Excess -3.2MMOL/L (-2.0-2.0) Blood Gas Vent Rate (0-30) Blood Gas Tidal Volume ML (0-1200) Test 06/03/16 13:36 06/03/16 17:23 Random Vancomycin Level 25.83UG/ML (0-40) Turbidity < 20 (0-20) Sodium Level 156MEQ/L (134-144) Potassium Level 3.5MEQ/L (3.6-5) Chloride Level 116MEQ/L (98-107) Carbon Dioxide Level 24MEQ/L (22-30) Anion Gap 16MEQ/L (5-15) Blood Urea Nitrogen 45.0MG/DL (7-17) Creatinine 1.9MG/DL (0.7-1.2) Glomerular Filtration Rate Calc 27 BUN/Creatinine Ratio 24RATIO (6-26) Glucose Level 124MG/DL (65-110) Calculated Osmolality 312MOSM/KG (261-280) Calcium Level 8.6MG/DL (8.4-10.2) Icterus Index < 2 (0-7) Chemistry Specimen Hemolysis < 15 (0-25) White count on admission 1.5 with 28% bands Lactic acid on admission 3.7 Initial proBNP on 05/30- 1090, repeat on 06/03- 20,800 Microbiology Microbiology Date/Time Source Procedure Growth Status 06/02/16 14:05 Sputum Suctioned Sputum Gram Stain - Final Resulted 06/02/16 14:05 Sputum Suctioned Sputum Sputum Culture - Preliminary CULTURE INITIATED - RESULTS PENDING Resulted 06/02/16 09:25 Urine Legionella Urinary Antigen -negative Complete 06/02/16 09:25 Urine Streptococcus pneumoniae Antigen -negative Complete Radiology Chest x-ray on admission revealed-Patchy bilateral airspace opacities, most confluent within the right lower lobe suggestive of pneumonia. Subsequent chest x-rays revealed more localized infiltrate at the left base followed by development of bilateral pulmonary infiltrates consistent with pulmonary edema. Bilateral venous Dopplers on 05/31 were negative for DVT CT head on 05/31 was without evidence of acute intracranial process. History of Present Illness Ms. 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 She was going to see her primary provider earlier today. While she was being checked into clinic they did note that patient collapsed onto the ground. She was less responsive. Oxygen saturations were checked and found to be in the low 80s. EMS was activated. The patient was subsequently taken to [facility] Emergency Room for evaluation. She did receive suctioning in the emergency room which helped improve her saturations. Lab was obtained showing leukopenia with white count 1.5 and 46% neutrophils with 28% bands. Her serum sodium is elevated at 152. Plasma lactate is elevated at 3.7. Blood pressure was low at 95/42. She was given a 2-liter fluid bolus (which would give her 30 mL/kg). Blood pressure did increase somewhat. The patient's level of consciousness did improve, to point where she would be awake and track. With her a Down's it is difficult for the patient to answer questions reliably. Chest x-ray was obtained showing evidence of infiltrate. Urine is not showing evidence of infection. In light of her severe sepsis Dr. Genao was notified and patient was subsequently placed in inpatient admission status at [facility] for further evaluation and treatment. Hospital Course 05/[address] patient in inpatient admission status at [facility] under the care of Dr. Genao. Anticipate greater than two midnights of care is needed. Initiate triple antimicrobial therapy consisting of cefepime 1 g IV q.6h. along with levofloxacin 750mg IV q.24h. and vancomycin per pharmacy protocol for empiric antimicrobial coverage of sepsis patient associated with healthcare. Continue with IV fluids. She has received fluid bolus appropriately. Will initiate 1/2 NS at 125mL/hr, watching for volume overload in light of her valvular heart disease. Lagun[place] catheter has been placed so we can monitor urine output closely. Recheck lactate. Initiate SCDs as well as Lovenox for DVT prophylaxis. As her D-dimer is elevated will initiate full-dose Lovenox. With her severe sepsis and respiratory status I was quite leery of having the patient undergoing CT PE protocol. Additionally, with her low blood pressures and stage III chronic kidney disease this could cause significant acute kidney injury. Will monitor the patient's symptoms, considering further CT as prudent. Will check Dopplers of lower extremities in light of elevated D-dimer to exclude DVT NPO until Speech can evaluate her swallow. She does have chronic dysphagia. Hold on ordering oral medications until swallow is cleared. Have Zofran available as needed for nausea. May have morphine and Ativan available as needed for anxiety, agitation, air hunger and pain. Recheck CBC, CMP and magnesium in a.m. The patient will be FULL CODE as per request. Patient's care will be returned to Dr. Zepeda at time of discharge from [facility]. 05/31 Resting in bed. Awake, alert but non verbal (baseline). Needed several IV boluses overnight as BP low. Norepinephrine started this am. Urine output decreased: I>O. CXR with increased consolidation. O2 saturations maintaining on 6L with mask. Sodium decreased to 147. Creatinine 1.1. WBC 3.3 with shift. Continue with levofloxacin, cefepime, and vancomycin for pulmonary coverage. Continue norepinephrine for BP support - target MAP 65 or above. Decrease 1/2NS to 100 cc/hr - valvular heart disease places increased concern for volume overload. Continue Lovenox for anticoagulation - LE US without evidence of clot. Possible CTA lungs tomorrow if pt status improves. Worry contrast dye at this time would be detrimental to renal function. Continue supplemental O2. Will add DuoNeb and Budesonide for respiratory support. Speech to check on swallow function. Lagunas to DD to monitor urine output. Pt critically ill. ICU care needs paramount. 06/01 Awake and alert. Uncomfortable-complaining that Lagunas bothersome. Resp rate and O2 need increases as pt irritated. Did receive MS overnight. IVF stopped by Tele Hospitalist overnight do to worry of volume. Minimal verbal response - yes /no answers. ROS limited secondary to pt's Down's. IVF stopped due to concern for volume overload. Monitor BP. Continue with levofloxacin, cefepime, and vancomycin for pulmonary coverage. Continue norepinephrine for BP support - target MAP 65 or above. Wean as able. Pt does tend to run lower BP in outpatient setting. Continue Lovenox for anticoagulation With continued need for norepinephrine, worry about having patient off unit. Worry contrast dye at this time would be detrimental to renal function. Continue supplemental O2 - weaning as able. Using mask as pt not tolerating NC due to discomfort of canula. Continue DuoNeb and Budesonide for respiratory support. Speech to check on swallow function. Lagunas removed due to pt discomfort with Lagunas. Pt critically ill. ICU care needs paramount. 06/02/16 Deterioration of oxygenation overnight requiring initiation of BiPAP-patient is tolerated thus far with oxygenation above 90% at rest but dropping below 90% with any activity and maximal FiO2. Diuresis initiated as x-ray suggests some component of volume overload. Electrolytes being repeated this afternoon. Persistent hypernatremia noted. Creatinine up slightly, continue to assess. Patient at high risk for aspiration and felt to have aspiration pneumonia when hospitalized 2 years ago-cefepime switch to Zosyn to add anaerobic coverage with dose adjusted for renal function. Discussed with pharmacy. Continue Levaquin and vancomycin. Sputum culture, respiratory viral panel, Legionella, and strep antigen to be obtained. Known underlying valvular heart disease, check proBNP with morning labs. Critically ill, prognosis guarded at best. 06/03/16 Remains critically ill-acute deterioration in cardiac rhythm this morning culminated in intubation urgently. Minimal diuresis overnight with initial dose of Lasix, persistent pulmonary edema and marginal oxygenation with evidence of fatiguing and slight hypercarbia on blood gases this morning. Just before 11 AM patient developed narrow complex tachyarrhythmia with heart rates around 200. Rhythm slowed with adenosine demonstrating underlying irregular rhythm consistent with A. fib/flutter. Blood pressure was borderline at the time but a trial dose of diltiazem 10 mg was given with minimal slowing. Dr. Perez was consulted by phone and suggested digoxin trial. 0.5 milligram of IV digoxin was administered and approximate 5 minutes later rhythm converted to sinus and has remained sinus thus far. Blood pressure remained borderline throughout with systolics typically in the 80s-90s which are reported by Dr. Perez to be near baseline for the patient. Patient was urgently intubated and has continued to require an FiO2 of 100% with borderline oxygenation. Decision was subsequently made to transfer to higher level of care due to complexity of illness. Transferring to [facility] discussed with Dr. Lara and Dr. Anais Perez. Chest x-ray consistent with pulmonary edema, Lasix given this morning with approximately 1 L of urine out thus far. Notified shortly after 4 PM that the patient was in narrow complex tachyarrhythmia with rate of 160. Arrived in unit at 1608-regular narrow complex tachycardia on telemetry with rate 160, 6 mg adenosine given followed by sinus pause then bradycardia then atrial fibrillation with rapid ventricular response and rates of 180-200. Blood pressure low (systolic in the 60s), second dose digoxin given 0.25 mg; rhythm unchanged. 250 mL bolus normal saline given. Dr. Perez notified of rhythm deterioration and recommended initiation of amiodarone and vasopressin. 150 mg loading dose of amiodarone given an drip being initiated. Vasopressin being initiated for blood pressures which remain depressed with systolics in the 70s. EMS had arrived in the unit to transfer, transfer temporarily delayed to permit initiation of vasopressin. Called back to the ICU urgently at approximately 1800 after patient had persistent hypotension following initiation of vasopressin and second fluid bolus. Norepinephrine was restarted and shortly thereafter the ventilator began alarming for low tidal volumes. Attempts to suction ET tube failed and ET was removed demonstrating a large mucous plug occluding the distal airway. Patient was subsequently bagged. In conjunction with airway occlusion bradycardia developed and CODE BLUE called. While I was en-route to the CCU atropine was given by Dr. Ospina who arrived on the scene before I did. Heart rate subsequently accelerated to 140 or above. Blood pressure remained depressed on vasopressin and Levophed. BiPAP was reinitiated pending family decision making. I subsequently spoke with patient's family members and advised them that resuscitation efforts throughout the day have failed to stabilize Avis's cardiac status. I further advised them that further efforts would be futile and recommended discontinuation of acute interventions. The patient's sisters subsequently spoke by phone and at 1853 notified nursing and myself that they wish to stop resuscitation efforts and initiate comfort care. DO NOT RESUSCITATE order written. BiPAP was discontinued as were multiple drips. Patient peacefully with family members at bedside at 1933. -- - Problems: (1) Acute respiratory failure with hypoxemia Status: Acute (2) Atrial fibrillation with RVR Status: Acute Assessment & Plan: Onset 06/03-converted after diltiazem 10 mg IV followed by digoxin 0.5 mg IV 1 (3) Pulmonary edema Status: Acute (4) Severe sepsis Status: Acute Assessment & Plan: Source pneumonia; pressors required for several days-septic shock (5) Pneumonia Status: Acute (6) Leukopenia Status: Resolved (7) Hypernatremia Status: Acute Assessment & Plan: POA (8) Hypotension Status: Acute (9) Down's syndrome Status: Chronic (10) CHF due to valvular disease Status: Chronic Assessment & Plan: Mitral regurgitation, past AV canal repair (11) Stage III chronic kidney disease Status: Chronic (12) Hypothyroidism Status: Chronic Assessment & Plan: TSH 2.78 on 06/03 (13) Dysphagia Status: Chronic (14) Obesity (BMI 30-39.9) Status: Chronic Code Status Do Not Resuscitate Home Meds Active Scripts Methylprednisolone Sod Succ/Pf (Solu-Medrol 125 mg Vial) 125 Mg/2 Ml Vial, 62.5 MG IV Q8HR for 10 Days, VIAL Prov:LENNY DAY MD 06/03/16 Budesonide (Pulmicort) 0.5 Mg/2 Ml Inha, 0.5 MG AEROSOL RTBID for 10 Days, INHALER Prov:LENNY DAY MD 06/03/16 Digoxin (Digoxin) 250 Mcg/1 Ml Ampul, 250 MCG IV Q6H for a fib, #2 AMP 2 doses only on 06/03 Prov:LENNY DAY MD 06/03/16 Digoxin (Digoxin) 250 Mcg/1 Ml Ampul, 125 MCG IV DAILY for a fib for 30 Days, AMP Prov:LENNY DAY MD 06/03/16 Enoxaparin Sodium (Lovenox) 60 Mg/0.6 Ml Syringe, 60 MG SQ BID for 10 Days, SYRINGE Prov:LENNY DAY MD 06/03/16 Ipratropium/Albuterol Sulfate (Iprat-Albut 0.5-3(2.5) mg/3 ml) 3 Ml Ampul.neb, 3 ML AEROSOL PRN Y for SHORTNESS OF AIR/WHEEZING for 10 Days Prov:LENNY DAY MD 06/03/16 Ipratropium/Albuterol Sulfate (Iprat-Albut 0.5-3(2.5) mg/3 ml) 3 Ml Ampul.neb, 3 ML AEROSOL QID for resp failure for 10 Days Prov:LENNY DAY MD 06/03/16 Acetaminophen (Acephen) 650 Mg Supp.rect, 650 MG RECTALLY Q6H Y for DISCOMFORT, #1 Prov:LENNY DAY MD 06/03/16 Levofloxacin/D5w (Levofloxacin-D5w 750 mg/150 ml) 750 Mg/150 Ml Piggyback, 750 MG IV DAILY for 3 Days Prov:LENNY DAY MD 06/03/16 Piperacillin Sodium/Tazobactam (Zosyn 3.375 Gram Vial) 3.375 Gm Vial, 3.375 G IV Q6H for 3 Days Prov:LENNY DAY MD 06/03/16 Reported Medications Mineral Oil/Petrolatum,White (Eucerin Creme) 120 Gm Cream..g., 1 APPLIC TOP BID Y for DRYNESS 05/30/16 Sodium Chloride (Natty-128) 15 Ml Drops, 1 DROP BOTH EYES DAILY 05/30/16 Miconazole Nitrate (Aloe [place]) 56 Gm Oint...g., 1 APPLIC TOP BID 04/27/16 Trazodone HCl (Trazodone HCl) 100 Mg Tablet, 100 MG PO HS 04/27/16 Divalproex Sodium (Divalproex Sodium) 250 Mg Tablet.dr, 250 MG PO BID 04/27/16 Polyvinyl Alcohol (Liquitears) 15 Ml Drops, 1-2 DROP BOTH EYES QID 06/22/15 Levothyroxine Sodium (Levothyroxine Sodium) 75 Mcg Tablet, 75 MCG PO DAILY 06/22/15 Triamcinolone (Triamcinolone Acetonide) 15 Applic/15 G Cr, 1 APPLIC TOP BID 03/09/15 Clotrimazole (Clotrim Antifungal) 15 Gm Cream..g., 1 APPLIC TOP BID 03/09/15 Risperidone (Risperidone) 0.25 Mg Tablet, 0.25 MG PO BID 07/10/14 Fluticasone Propionate (Flonase) 16 Gm [place].susp, 2 SPRAY EA NOSTRIL DAILY 10/31/11 Citalopram (Celexa) 20 Mg Tablet, 20 MG PO DAILY 10/31/11 Discontinued Reported Medications Guaifenesin/Dextromethorphan (Siltussin Dm Cough Syrup) 118 Ml Syrup, 5 ML PO Q6H Y for COUGH 05/30/16 Nystatin (Nystatin) 15 Applic/15 G Cr, 1 APPLIC TOP BID Y for PRN ORDERS 05/30/16 [place] Tar (T-Gel) 130 Ml Shampoo, 1 APPLIC TP 2XW MON & FRI 05/30/16 Vit E Acetate/Gly/Dimeth/Water (Cetaphil Moisturizing Lot) 50 Applic/236 Ml Lotion, 1 APPLIC TOP TID 05/30/16 [Baby Oil] No Conflict Check, 1 APPLIC TOP PRN Y for FLAKY SCALP 04/27/16 Glucosamine Sulfate (Glucosamine Sulfate) 500 Mg Tablet, 500 MG PO WS 04/27/16 Docusate Sodium (Docusate Sodium) 100 Mg Capsule, 100 MG PO BID Y for CONSTIPATION 04/10/16 [Desenex Ointment] No Conflict Check, 1 APPLIC TP PRN 04/10/16 Calcium Carbonate/Mag Hydrox (Antacid Chewable Tablet) 1 Each Tab.chew, 500 MG PO TID Y for INDIGESTION 04/10/16 Acetaminophen (Acetaminophen) 500 Mg Tablet, 1000 MG PO TID 04/10/16 Albuterol Sulfate (Ventolin HFA 90 mcg/actuation) 18 Gm Hfa.aer.ad, 1 PUFF ORAL INH QID Y for SHORTNESS OF AIR/WHEEZING 04/10/16 Nystatin/Triamcin (Nystatin-Triamcinolone Cream) 15 Gm Cream..g., 1 DOSE TOP BID 04/10/16 Cholecalciferol (Vitamin D3) 1,000 Unit Tablet, 1500 UNIT PO DAILY 06/22/15 Glucosamine Sulfate (Glucosamine Sulfate) 500 Mg Capsule, 1500 MG PO BIDBL 06/22/15 Multivitamins,Therapeutic (Theragran) 1 Tab Tablet, 1 TAB PO DAILY 06/30/08 Furosemide (Lasix) 20 Mg Tablet, 20 MG PO DAILY 06/30/08 Loratadine (Claritin) 10 Mg Tablet, 10 MG PO DAILY 06/30/08 Face to Face Encounter See progress notes throughout the day Discharge Disposition Copies To 1: DARION ZEPEDA MD; ESTEFANIA PEREZ MD Documentation Requirements Documenting Diagnosis Pneumonia, Chronic Kidney Disease Chronic Kidney Disease Stage of CKD: Stage 3 GFR 30-59 Pneumonia Significance to pneumonia: Unable to Determine Aspiration Pneumonia: Due to aspiration (probable) LENNY DAY MD Jun 03, 2016 22:37
--- NOTE | 2016-06-04 07:48 | DI ---
EXAM: CHEST 1 VIEW LOCATION OF DICTATION: [place] HISTORY: ITS.REASON: ANOXIA ON VENT COMPARISON: Compared to June 02, 2016 FINDINGS: Interval removal of endotracheal tube. Nasoenteric catheter extends into the stomach. The heart size is upper limits normal. The mediastinal configuration is within normal limits. Postsurgical changes of median sternotomy. There are diffuse alveolar opacities which are stable to slightly increased in the right upper lobe. There are small trace bilateral pleural effusions suspected. There is no pneumothorax. There is [id number] spondylosis of the thoracic spine. IMPRESSION: 1. Diffuse alveolar opacities bilaterally which are stable to slightly increased within the right upper lobe. Suspected small bilateral pleural effusions. Continued follow-up is recommended. 2. Interval removal of endotracheal tube. Nasoenteric catheter extends into the stomach. .
[2016-06-04] MEDS ORDERED: DIGOXIN 500mcg/2ml INJECTION IV SCH (09:00)
--- NOTE | 2016-06-04 09:22 | DI ---
EXAM: CHEST 1 VIEW LOCATION OF DICTATION: [place] HISTORY: ITS.REASON: respiratory failure/pneumonia COMPARISON: Compared to June 03, 2016 at 18 hours and 42 minutes. FINDINGS: Heart size is upper limits normal. Postsurgical changes of median sternotomy. Diffuse alveolar opacities again demonstrated within the bilateral lungs greatest in the mid to lower lung zones. There are probable trace bilateral pleural effusions. Right-sided PICC line in stable position with the tip overlying the mid SVC. Interval removal of nasoenteric catheter. Moderate spondylosis of the thoracic spine. IMPRESSION: 1. Stable diffuse alveolar opacities within the bilateral lungs, greatest in the mid to lower lung zones. Suspected small bilateral pleural effusions. Continued follow-up is recommended. 2. Interval removal of nasoenteric catheter. Right PICC line in stable position. 3. Heart size is upper limits normal. .
--- NOTE | 2016-06-05 15:28 | NUR ---
RESTRAINT PRIOR TO NOTE: Soft wrist restraints were removed on June 03, 2016 at 1600, 3.5 hours prior to patient . Soft restraints were used to protect placement of ET tube, and from patient pulling at tubes and/or lines. No further action.
== END 2016-06-03 19:33 | disposition expired | DRG 871 ==
LOC: ED 15:26 → EDHOLD 17:59 → CCU 18:40
PROVIDERS: ADMIT Hospitalist; ATTEND Hospitalist
PROC: 5A09457 Assistance with Respiratory Ventilation, 24-96 Consecutive Hours, Continuous Positive Airway Pressure (ICD-10-PCS; principal; 2016-06-02)
PROC: 5A1935Z Respiratory Ventilation, Less than 24 Consecutive Hours (ICD-10-PCS; 2016-06-03)
PROC: 0BH17EZ Insertion of Endotracheal Airway into Trachea, Via Natural or Artificial Opening (ICD-10-PCS; 2016-06-03)
DX: A41.9 Sepsis, unspecified organism (principal); R65.21 Severe sepsis with septic shock; J18.9 Pneumonia, unspecified organism; J96.01 Acute respiratory failure with hypoxia; I09.81 Rheumatic heart failure; E87.0 Hyperosmolality and hypernatremia; I48.92 Unspecified atrial flutter; I50.9 Heart failure, unspecified; Q90.9 Down syndrome, unspecified; F79 Unspecified intellectual disabilities; N18.3 Chronic kidney disease, stage 3 (moderate); E03.9 Hypothyroidism, unspecified; R13.12 Dysphagia, oropharyngeal phase; E66.9 Obesity, unspecified; J30.9 Allergic rhinitis, unspecified; I48.91 Unspecified atrial fibrillation; Z78.1 Physical restraint status; Z79.899 Other long term (current) drug therapy; Z68.31 Body mass index [BMI] 31.0-31.9, adult
CPT/HCPCS: 36415; 51702; 80048; 80053; 80202; 81001; 82550; 82803; 82948; 83605; 83735; 83880; 84145; 84443; 84484; 85025; 85379; 85610; 87040; 87070; 87205; 87449; 87486; 87502; 87581; 87633; 87641; 87798; 92950; 93005; 94002; 94003; 94640; 96365; 96367